=== PATIENT | male | born 1955 | race Caucasian/White ===

== ENCOUNTER 2020-09-29 10:23 | Emergency (ER) | payer MEDICARE, MEDICAID, SELFPAY ==
[2020-09-29 11:26] VITALS: BP 149/97; PULSE 88; RESP 18; TEMP 37.1; O2SAT 97; BMI 30.5
--- NOTE | 2020-09-29 11:37 | ED.GENADULT ---
HPI - General Adult General Chief complaint: General Medical Stated complaint: hbp Time Seen by Provider: 09/29/20 11:24 Source: patient Mode of arrival: ambulatory Limitations: no limitations History of Present Illness HPI narrative: 64-year-old male who presents emergency department for evaluation of elevated blood pressure and dizziness. Patient states that he was mopping this morning and felt slightly dizzy. He is vague in describing the dizziness. He states that it was brief in and went away. The patient then checked his blood pressure he states his blood pressure was 134/94 which is slightly high for him. The patient states that he had no other symptoms. He denied chest pain, headache, nausea, vomiting, shortness of breath, numbness or weakness. The patient states that here in the emergency department he has no complaints. The patient takes hydrochlorothiazide 25 mg daily and lisinopril 40 mg daily. He states he has been compliant with his medications. Related Data Allergies Allergy/AdvReac Type Severity Reaction Status Date / Time No Known Allergies Allergy Unverified 05/07/20 15:16 [No Known Allergies*] Review of Systems Review of Systems: Yes all other systems are reviewed and are negative Neurologic: Reports Abnormal speech present [facility] Past Medical History [facility] Narrative: Past medical history positive for hypertension and prediabetes, the patient smokes 1-2 cigarettes per day, he drinks 8 beers per day, he denies drug use. Physical Exam Const: General: cooperative and healthy appearing Orientation/consciousness: oriented to person and oriented to place Limitations: no limitations HENMT: Head: Yes normal to inspection, Yes normocephalic and Yes atraumatic Ears: external ears normal General nose exam: Normal external nose present Face and sinus: Yes normal facial exam Mouth: Normal oral and palatal mucosa present Throat: Yes posterior oropharynx normal Eyes: Periorbital: periorbital findings normal Eyelids: Yes eyelids normal Conjunctivae: conjunctivae normal Sclerae: sclerae normal Corneas: corneas normal Pupils: Equal, round and reactive pupils present Direct Ophthalmoscopy: normal light reflex Neck: Neck: Yes full ROM, Yes no lymphadenopathy, Yes no meningeal signs, Yes trachea midline and Yes supple Chest: Chest palpation & inspection: normal inspection of the chest and normal palpation of entire chest wall Resp: Effort & Inspection: normal respiratory effort and able to speak in complete sentences Auscultation: clear to auscultation bilaterally Cardio: Rate: regular rate Rhythm: regular rhythm Heart sounds: S1 normal heart sound present, S2 normal heart sound present and no murmurs GI: Inspection: Yes normal to inspection Palpation (GI): Soft to palpation, nontender, no guarding, not rigid and No hepatosplenomegaly present : General: Yes no CVA tenderness Back/Spine/Pelvis: Back: no CVA tenderness Cervical Spine: normal cervical lordosis Thoracic/Lumbar Spine: thoracic and lumbar spine normal to inspection Skin: Lesions: no lesions Rashes: no rashes Wounds: no wounds Neuro: General: oriented to person, oriented to place and no meningeal signs Cranial nerves: Yes CN's II-XII intact bilaterally and Yes Equal, round and reactive pupils present Cognition (Neuro): normal cognition Speech: Abnormal speech present Motor exam (neuro): 5/5 motor strength present throughout Extrem: General: Yes normal to inspection and Yes full ROM Psych: Appearance: well kempt Mental Status: mental status grossly normal Speech and movement: Normal speech and movement present Affect: normal affect Attitude: cooperative Thought process: Normal thought process present Thought content: Normal thought content present Course Course Course Narrative: 64-year-old male with a history of hypertension who presents emergency department for evaluation of dizziness and elevated blood pressure at home. Patient's dizziness was vague and resolved prior to coming to the emergency department. The patient stated that his blood pressure was 134/94 home which is only mildly elevated. Here in the emergency department the patient's blood pressure is 149/97, otherwise exam is completely normal. At this time I do not think patient has hypertensive crisis or urgency or any acute illness such as AK or stroke. I did discuss this with him. Patient was advised to continue taking his medications. He was advised to take his blood pressures on Monday, Monday and Monday for the next 2 weeks and discuss these readings with his doctor. He was given verbal and printed instructions and discharged home. Discharge Plan Discharge Clinical Impression: Dizziness, Hypertension Patient Disposition: Home, Self-Care Additional Instructions: The reason to check your blood pressure at home is to give your doctor an idea of what your blood pressure does when you are not in the doctor's office. Take your blood pressure in the morning, Mondays, Wednesdays and Fridays for the next 2 weeks and then write down these readings to discuss them with your doctor at your next visit. If you doctor decides that your blood pressure readings are high than your doctor will either increase your medications are start you on the medications.. If you get started on new medications, it often takes 1-2 months or longer to get your blood pressure under control. Lowering your blood pressure too rapidly or getting your blood pressure too low quickly can make you feel bad. Please return to the emergency department if you develop concerning symptoms such as severe headache, chest pain, shortness of breath, difficulty walking secondary to shortness of breath, numbness, weakness, difficulty talking. Take Tylenol (acetaminophen) 500 mg pills, 2 pills every 4 to 6 hours as needed for pain. Follow-up with your doctor to discuss your blood pressure readings. Please return to the emergency department if your symptoms get worse or if you develop any new symptoms that are concerning to you.
== END 2020-09-29 12:05 | disposition home or self-care (01) ==
LOC: HO.ED 11:53
PROVIDERS: Emergency Provider Emergency Medicine Emergency Medical Services; PCP Internal Medicine
DX: R42 Dizziness and giddiness (principal); I10 Essential (primary) hypertension; Z79.899 Other long term (current) drug therapy
CPT/HCPCS: 99283

== ENCOUNTER 2022-02-07 16:12 | Outpatient (REF) | payer MEDICARE, MEDICAID, SELFPAY ==
--- NOTE | ~2022-02-07 | XR_ITS ---
EXAMINATION: XR WRIST, RIGHT XR HAND, RIGHT CLINICAL INFORMATION: Pain. COMPARISON: None TECHNIQUE: PA, lateral, and oblique views of the right wrist and PA, lateral, and oblique views of the right hand FINDINGS: Bony alignment and mineralization are normal. There is a very mild ulnar positive variance. There is mild osteoarthritic change of the interphalangeal joint of the thumb and of the third through fifth distal interphalangeal joints.There is mild to moderate osteoarthritic change of the first metacarpophalangeal joint. No acute fracture or dislocation is seen. Question old, healed fracture of the distal fifth metacarpal shaft. There is moderate osteoarthritic change of the first carpometacarpal joint. The proximal and distal carpal rows are intact. There is no abnormal bone erosion. No soft tissue gas or foreign body is seen. XR/XR hand wrist RT IMPRESSION: There are multi-focal degenerative changes of the right hand and wrist, as detailed. No fracture or dislocation is seen. There is no abnormal bone erosion.
== END 2022-02-07 16:13 | disposition home or self-care (01) ==
LOC: HO.XRAY 16:12
PROVIDERS: PCP Internal Medicine; Visit Provider Internal Medicine
DX: M25.531 Pain in right wrist (principal)
CPT/HCPCS: 73110; 73130

== ENCOUNTER → 2022-05-09 09:46 | Outpatient (BNVA) | payer MEDICARE, MEDICAID, SELFPAY | PROVIDERS: PCP Internal Medicine; Referring Provider Internal Medicine; Visit Provider Physician Assistant | DX: Z01.818 Encounter for other preprocedural examination (principal); Z86.010 Personal history of colon polyps | CPT/HCPCS: 99202 ==

== ENCOUNTER 2022-10-18 06:36 | Day surgery (SDC) | payer MEDICARE, MEDICAID, SELFPAY ==
[2022-10-18 07:08] VITALS: BMI 29.7
--- NOTE | 2022-10-18 07:11 | P.CONAN_ITS ---
[facility] Active Problems Active Problems: All Active Problems (Updated 05/09/22 @ 13:12 by Vera Gordon PA-C) History of colon polyps (Acute) Encounter for screening colonoscopy (Acute) Past Medical History Functional capacity: independent ambulation Family History Family history of problems with anesthesia: No Surgical History History of Problems with Anesthesia: No Social History Social History Household Members Other:: Alcohol intake: current Alcohol intake frequency: other Patient Tobacco Use Status: Current someday Tobacco user Use of substances other than those prescribed or required for medical reasons: No Are you DNR?: No Advance Directives: No Advance Directives Information Provided: Yes Recently lost weight without trying: No Nutrition Risks: No Nutritional Risk Current occupational status: retired [employer] Allergies Allergy/AdvReac Type Severity Reaction Status Date / Time No Known Allergies Allergy Verified 05/09/22 09:56 [No Known Allergies*] Home Medications Medication Instructions Recorded Confirmed Last Taken Type hydrochlorothiazide 25 mg tablet 25 mg PO QAM 05/09/22 10/18/22 10/18/22 History lisinopril 40 mg tablet 40 mg PO DAILY 05/09/22 10/18/22 10/18/22 History metformin 500 mg tablet,extended 500 mg PO QPM 05/09/22 10/18/22 Unknown History release 24 hr Exam Exam Date and Time: October 18, 2022 0711 Height,Weight and Vital Signs: Height 5 ft 4 in Weight 78.471 kg Airway Mallampati Class: III TM Dist: >3cm Neck ROM: Full Heart: RRR Lungs: CTA Assessment and Plan Final Anesthetic Review Family History of Problems with Anesthesia: No History of Problems with Anesthesia: No NPO: Yes ASA Class: II and III Final Preanesthetic Review: Meds/Allgs Chart Reviewed, Consent Obtained/Reviewed and Anes Risks/Benef Reviewed Patient Risk: Low Assessment/Block/Sedation in SS: Assess/Block/Sedation-SS Anesthetic Plan Anesthetic Plan: MAC: Disposition: Standard PACU
[2022-10-18 07:14] VITALS: BP 145/95; PULSE 88; RESP 16; TEMP 36.5; O2SAT 96
[2022-10-18 07:28] LABS: Glucose, Whole Blood 120 mg/dL (60-115)
[2022-10-18] MEDS: Lactated Ringers 1,000 ML 100 ML IVCONT (07:30)
--- NOTE | 2022-10-18 08:47 | MHC.SHP ---
Pre-Procedural Eval Section A Date of Service: 10/18/22 Section B Chief Complaint: Encounter for screening for malignant neoplasm of Relevant Family History (Specify if Yes): No Relevant Social History: Alcohol Use Present Medications: see Short Stay Collaborative assessment Medical History: Significant History (HTN, pre diabetes) History of Previous Operations: No relevant previous surgery Allergies: Allergies Allergy/AdvReac Type Severity Reaction Status Date / Time No Known Allergies Allergy Verified 05/09/22 09:56 [No Known Allergies*] Review of Systems Sugical H&P ROS: Negative: Constitution, Cardiovascular, Respiratory, Neurological, Psychiatric, Hem-Onc, Allergic/Immunologic, Gastrointestinal, Genitourinary, Musculoskeletal, Integumentary, Endocrine and Eyes/Ears/Nose/Throat Exam Surgical H&P Exam: Normal: HEENT, Normal: Heart, Normal: Lungs, Normal: Extremities, Normal: Abdomen, Normal: Skin and Normal: Neurological Plan Diagnosis/Plan: Unchanged I have reviewed the history and physical and performed a pertinent physical examination on my patient. No changes have occurred unless specified. Time Spent With Patient Time: Total time managing care of this patient today ____ minutes.
--- NOTE | 2022-10-18 08:49 | W.PM.OPN ---
Operative Note Operative Note Date of Service: 10/18/22 Narrative: Operative Information Procedure Description: Colonoscopy Indication: screening Anesthesia: MAC COLONOSCOPY Instrument: Olympus variable stiffness pediatric scope 190L Colonoscopy Monitoring: Vital signs and clinical assessment, continuous EKG monitoring, Pulse oximetry, Carbon Dioxide monitoring and blood pressure monitoring were done throughout the procedure. Colon withdrawal time was 10 minutes. Procedure: The patient was placed in the left lateral decubitis position and pre-procedure medications were administered. After a digital rectal examination of the ano-rectum, the video colonoscope was inserted into the rectum and advanced through the colon to the cecum/TI. The colonoscope was slowly withdrawn in a retrograde panoramic fashion and the colon mucosa was carefully examined including a retroflexed view of the rectum. Findings and interventions are described below. Procedure Difficulty: moderate, pressure applied to get into cecum Findings: Terminal Ileum-normal Cecum: 6-7 mm sessile polyp removed with cold forceps Ascending Colon: normal Transverse Colon -normal Descending Colon:normal Sigmoid Colon: mild diverticulosis Rectum: Retroflexion with medium sized internal hemorrhoids, grade I, 10 mm sessile polyp removed with cold snare Anorectum - normal Colon preparation: [place] Bowel Preparation Scale Right colon; 2 Transverse colon: 3 Left colon; 3 (0 = Unprepared colon segment with mucosa not seen due to solid stool that cannot be cleared. 1 = Portion of mucosa of the colon segment seen, but other areas of the colon segment not well seen due to staining, residual stool and/or opaque liquid. 2 = Minor amount of residual staining, small fragments of stool and/or opaque liquid, but mucosa of colon segment seen well. 3 = Entire mucosa of colon segment seen well with no residual staining, small fragments of stool or opaque liquid) Impression and Post Procedure Diagnosis: polyps internal hemorrhoids diverticular disease Plan: High fiber diet leaflet Avoid straining at stool, epsom salts and sitz bath, anusol supps or cream Repeat Colonoscopy in 5-7 years due to polyps or earlier if clinically indicated Above findings were reviewed with the patient and relevant handouts were provided if indicated.
[2022-10-18 09:26] VITALS: BP 103/64; PULSE 84; RESP 16; TEMP 36.2; O2SAT 95
[2022-10-18 09:41] VITALS: BP 112/76; PULSE 79; RESP 16; TEMP 36.4; O2SAT 95
--- NOTE | 2022-10-18 09:55 | HO.POSTANES ---
Post Anesthesia Evaluation Post Anesthesia Evaluation Vital Signs: Vital Signs Temp Pulse Resp BP Pulse Ox O2 Del Method 10/18/22 09:41 97.5 F 79 16 112/76 95 Room Air 10/18/22 09:26 97.1 F 84 16 103/64 95 Room Air 10/18/22 07:14 97.7 F 88 16 145/95 H 96 Room Air Anesthesia: Monitored Mental Status: Awake Pain Control: Satisfactory Nausea/Vomiting: None Hydration: Adequate Anesthesia-Related Issues: No Anes. Related Issues
== END 2022-10-18 10:43 | disposition home or self-care (01) ==
PROVIDERS: PCP Internal Medicine; Visit Provider Internal Medicine Gastroenterology
PROC: 0DJD8ZZ Inspection of Lower Intestinal Tract, Via Natural or Artificial Opening Endoscopic (ICD-10-PCS; CPT 45378; principal; 2022-10-18 08:10)
DX: Z12.11 Encounter for screening for malignant neoplasm of colon (principal); Z86.010 Personal history of colon polyps; K63.5 Polyp of colon; K62.1 Rectal polyp; K57.30 Diverticulosis of large intestine without perforation or abscess without bleeding; K64.0 First degree hemorrhoids; I10 Essential (primary) hypertension; R73.03 Prediabetes; Z79.84 Long term (current) use of oral hypoglycemic drugs; Z79.899 Other long term (current) drug therapy; F17.210 Nicotine dependence, cigarettes, uncomplicated
CPT/HCPCS: 45385; 45380; 82947; 88305

== ENCOUNTER → 2022-11-07 13:35 | Outpatient (BNVA) | payer MEDICARE, MEDICAID, SELFPAY | PROVIDERS: PCP Internal Medicine; Visit Provider Physician Assistant | DX: K64.9 Unspecified hemorrhoids (principal); K57.30 Diverticulosis of large intestine without perforation or abscess without bleeding; K63.5 Polyp of colon | CPT/HCPCS: 99212 ==

== ENCOUNTER 2023-06-16 10:24 | Outpatient (REF) | payer MEDICARE, MEDICAID, SELFPAY ==
[2023-06-16 12:44] LABS: Cholesterol 204 mg/dL (<200); HDL Cholesterol 43 mg/dL (>40); LDL Cholesterol Calculated 141 mg/dL (<100); Triglycerides 102 mg/dL (<150)
[2023-06-16 12:47] LABS: Alanine Aminotransferase 33 U/L (0-40); Albumin Level 4.4 g/dL (3.5-5.0); Alkaline Phosphatase 70 U/L (39-117); Anion Gap 16 (12-20); Aspartate Amino Transferase 28 U/L (5-37); Bilirubin Direct 0.4 mg/dL (0.0-0.5); Bilirubin Total 1.5 mg/dL (0.0-1.0); Blood Urea Nitrogen 15 mg/dL (9-16); Calcium 9.7 mg/dL (8.4-10.2); Carbon Dioxide 25 mmol/L (22-29); Chloride 102 mmol/L (96-108); Estimated Glomerular Filt Rate > 60; Glucose Random 131 mg/dL (60-115); Potassium 3.9 mmol/L (3.3-5.1); Sodium 139 mmol/L (135-145); Total Protein 7.9 g/dL (6.5-8.0)
[2023-06-16 12:56] LABS: Prostate Specific Antigen 0.81 ng/mL (<0.05-4.0)
[2023-06-16 15:52] LABS: Reflex LDLD? No
[2023-06-17 03:45] LABS: ~HepC Num1 0.09 S/CO (0.00-0.79); ~Hepatitis C Antibody Nonreactive (Nonreactive)
== END 2023-06-16 10:25 | disposition home or self-care (01) ==
LOC: HO.HHCL 10:24
PROVIDERS: Visit Provider Internal Medicine
DX: Z00.00 Encounter for general adult medical examination without abnormal findings (principal); E78.2 Mixed hyperlipidemia; I10 Essential (primary) hypertension; Z12.5 Encounter for screening for malignant neoplasm of prostate
CPT/HCPCS: 36415; 80048; 80061; 80076; 84153; 86803

== ENCOUNTER 2023-10-27 09:47 | Outpatient (REF) | payer MEDICARE, MEDICAID, SELFPAY ==
[2023-10-27 11:52] LABS: Estimated Average Glucose 154 mg/dL
[2023-10-27 12:57] LABS: Anion Gap 11 (12-20); Blood Urea Nitrogen 11 mg/dL (9-16); Calcium 9.8 mg/dL (8.4-10.2); Carbon Dioxide 30 mmol/L (22-29); Chloride 106 mmol/L (96-108); Estimated Glomerular Filt Rate > 60; Glucose Random 120 mg/dL (60-115); Potassium 3.7 mmol/L (3.3-5.1); Sodium 143 mmol/L (135-145)
[2023-10-27 13:15] LABS: TSH reflex Free T4 0.94 uIU/mL (0.32-4.0)
== END 2023-10-27 09:48 | disposition home or self-care (01) ==
LOC: HO.HHCL 09:47
PROVIDERS: Visit Provider Internal Medicine
DX: I10 Essential (primary) hypertension (principal); F41.9 Anxiety disorder, unspecified; R73.03 Prediabetes
CPT/HCPCS: 36415; 80048; 83036; 84443

== ENCOUNTER 2024-04-29 09:42 | Outpatient (REF) | payer MEDICARE, MEDICAID, SELFPAY ==
[2024-04-29 12:14] LABS: Alanine Aminotransferase 34 U/L (0-40); Albumin Level 4.4 g/dL (3.5-5.0); Alkaline Phosphatase 67 U/L (39-117); Anion Gap 14 (12-20); Aspartate Amino Transferase 28 U/L (5-37); Bilirubin Total 0.7 mg/dL (0.0-1.0); Blood Urea Nitrogen 12 mg/dL (9-16); Carbon Dioxide 24 mmol/L (22-29); Chloride 107 mmol/L (96-108); Cholesterol 204 mg/dL (<200); Estimated Glomerular Filt Rate > 60; Glucose Random 124 mg/dL (60-115); HDL Cholesterol 50 mg/dL (>40); LDL Cholesterol Calculated 139 mg/dL (<100); Potassium 3.7 mmol/L (3.3-5.1); Sodium 141 mmol/L (135-145); Total Protein 7.9 g/dL (6.5-8.0); Triglycerides 75 mg/dL (<150)
[2024-04-29 12:18] LABS: Prostate Specific Antigen Scr 0.88 ng/mL (<0.05-4.0)
== END 2024-04-29 09:43 | disposition home or self-care (01) ==
LOC: HO.HHCL 09:42
PROVIDERS: Visit Provider Internal Medicine
DX: Z00.00 Encounter for general adult medical examination without abnormal findings (principal); E78.2 Mixed hyperlipidemia; I10 Essential (primary) hypertension; Z12.5 Encounter for screening for malignant neoplasm of prostate
CPT/HCPCS: 36415; 80053; 80061; 84153

== ENCOUNTER 2025-04-15 09:11 | Outpatient (REF) | payer MEDICARE, MEDICAID, SELFPAY ==
--- OUTSIDE RECORDS SUMMARY | 2025-04-15 09:33 | XMS_ITS | Encounter Summary ---
Author Organization [email or web address] Address [address] [place] [address] Care Team Providers Care Clerk Specialist Name Role Phone Francisco Javier Schwartz MD Primary Care Provide r Reason for Visit * Reason Comments Med Refill Encounter Details Date Type Department Care Team ([facility] st Contact Info) Description 04/14/2025 Refill [facility] [address], [place] [id number] Francisco Javier Schwatrz MD [address] [place], [place] [id number] Essential hypertension Social History Tobacco Use Types Packs/Day Years Used Date Smoking Tobacco: Some Days Cigarettes Passive Smoke Exposure: Current Smokeless Tobacco: Never Depression Answer Date Recorded Patient Health Questionnaire-9 Score 1 05/28/2024 Patient Health Questionnaire-9 Score 1 05/28/2024 Last PHQ-9: Questionnaire Data Not on file 1 Housing Stability Answer Date Recorded What is your housing situation today? I have neftali jones 06/16/[address] you li ve. Do you have problems with any of the following? None of the above 06/16/2023 Food Insecurity Answer Date Recorded Within the past 12 months, y ou worried that your food would run out before you got money to buy more: Never True 01/02/2025 Within the past 12 months,th e food you bought just didn't last and you didn't have enough money to get more: Never True Transportation Answer Date Recorded In the past 12 months, has l ack of transportation kept you from medical appts, meetings, work or from getting things needed for daily living? No 01/02/2025 Utilities Answer Date Recorded In the past 12 months, has t he electric, gas, oil or water company threatened to shut off services in your home? No 01/02/2025 Depression Answer Date Recorded Patient Health Questionnaire-2 Score 0 05/28/2024 Internet Access Answer Date Recorded Internet Access Q1 Yes 01/02/2025 Internet Access Q2 Not on file 01/02/2025 Sex and Gender Information Value Date Recorded Sex Assigned at Male 06/20/2022 10:17 AM EDT Legal Sex Male 10:17 AM EDT Gender Identity Male 06/20/2022 10:17 AM EDT Sexual Orientation Straight 06/20/2022 10 :17 AM EDT documented as of this encounter Plan of Treatment Upcoming Encounters Date Type Department Care Team (Late st Contact Info) Description 04/17/2025 11:15 AM EDT Office Visit [facility] [address] [place] [address] Francisco Javier Schwartz MD [address] [place] [phone] documented as of this encounter Visit Diagnoses Diagnosis Essential hypertension Unspecified essential hypertension documented in this encounter Additional Health Concerns Assessment Noted Time PHQ-9 Depression Total Score: 1 05/28/20 24 11:28 AM EDT documented as of this encounter Care Teams Clerk Specialist Relationship Specialty Start Date End Date Francisco Javier Schwartz MD [address] [place] [address] PCP - General Internal Medicine 06/25/14 documented as of this encounter
--- OUTSIDE RECORDS SUMMARY | 2025-04-15 09:33 | XMS_ITS | Clinical Summary ---
Author Organization [employer] Address [address] [facility] [address] [place] [address] Care Team Providers Care Quality Assurance Director Name Role Phone Francisco Javier Schwartz MD Primary Care Provide r Allergies No known active allergies Medications hydrOXYzine pamoate (Vistaril) 25 MG capsuleIndications: Anxiety TAKE 1 TABLET BY MOUTH EVERY 8 HOURS IF NEEDED FOR ANXIETY. 90 capsule 3 4 Active Blood Glucose Monitoring Suppl (FreeStyle Lite) w/Device kitIndications:Type 2 diabetes mellitus without complication, without long-term current use of insulin ([facility]) 1 Device Once per day. 1 kit 4 Active FREESTYLE LITE test stripIndications:Ty pe 2 diabetes mellitus without complication, without long-term current use of insulin (CMS/HCC) Test daily 100 each 12 4 04/18/20 25 Active FreeStyle lancetsIndications: Type 2 diabetes mellitus without complication, without long-term current use of insulin (CMS/[facility]) 1 each by Other route Once per day. 100 each 4 04/18/20 25 Active hydroCHLOROthiazide (HYDRODiuril) 25 MG tabletIndications:E levated blood pressure reading TAKE 1 TABLET BY MOUTH EVERY DAY 90 tablet 1 5 Active lisinopril 40 MG tabletIndications:E ssential hypertension Take 1 tablet (40 mg) by mouth Once per day. 90 tablet 1 5 Active atorvastatin (Lipitor) 20 MG tabletIndications:M ixed hyperlipidemia Take 1 tablet (20 mg) by mouth Once per day. 30 tablet 5 01/10/20 26 Active metFORMIN XR (Glucophage-XR) 500 MG 24 hr tabletIndications:T ype 2 diabetes mellitus without complication, without long-term current use of insulin ([facility]) TAKE 1 TABLET(500 MG) BY MOUTH WITH THE EVENING MEAL. DO NOT CRUSH, CHEW, OR SPLIT 90 tablet 1 5 Active Active Problems Problem Noted Date Diagnosed Date Anxiety 10/17/2023 Assessment & Plan (10/17/2023 10:06 AM EST): Patient reports feeling anxious all the time, does not want to see a therapist Plan: Start Vistaril 25 mg po q 8 hrs PRN Obtain TSH Mixed hyperlipidemia 05/04/2023 Assessment & Plan (01/09/2025 11:19 AM EDT): Patient with elevated lipids. Most recent lipid profile from: Lab Results Component Value Date TRIG 75 04/29/2024 TRIG 102 06/16/2023 CHOL 204 (H) 04/29/2024 CHOL 204 (H) 06/16/2023 LDLCHOLCAL 139 (H) 04/29/2024 LDLCHOLCAL 141 (H) 06/16/2023 HDL 50 04/29/2024 HDL 43 06/16/2023 Last visit started on Atorvastatin 20 mg po qhs advised to try to adhere to a low cholesterol diet, counseled and educated about diet and exercise, Patient encouraged to come up with a personal goal for weight loss. Repeat Lipid profile Assessment & Plan (05/28/2024 11:45 AM EDT): Patient with elevated lipids. Most recent lipid profile from: Lab Results Component Value Date TRIG 75 04/29/2024 TRIG 102 06/16/2023 CHOL 204 (H) 04/29/2024 CHOL 204 (H) 06/16/2023 LDLCHOLCAL 139 (H) 04/29/2024 LDLCHOLCAL 141 (H) 06/16/2023 HDL 50 04/29/2024 HDL 43 06/16/2023 The 10-year ASCVD risk score (Laura TARANGO, et al., 2019) is: 45.8% Values used to calculate the score: Age: 68 years Sex: Male Is Non- : No Diabetic: Yes Tobacco smoker: Yes Systolic Blood Pressure: 134 mmHg Is BP treated: Yes HDL Cholesterol: 50 mg/dL Total Cholesterol: 204 mg/dL Currently not on a regimen Plan: Start Atorvastatin 20 mg po qhs advised to try to adhere to a low cholesterol diet, counseled and educated about diet and exercise, Patient encouraged to come up with a personal goal for weight loss. Assessment & Plan (04/18/2024 10:17 AM EDT): Patient with elevated lipids. Most recent lipid profile from: 06/16/2023 Component Ref Range & Units 2 yr ago Triglycerides <150 mg/dL 102 109 Comment: Desirable Triglyceride: less than 150 mg/dLBorderline High Triglyceride 150-199 mg/dLHigh Triglyceride: 200-499 mg/dLVery High Triglyceride: greater than or equal to 5OO mg/dL Cholesterol <200 mg/dL 204 High Comment: Desirable Cholesterol: less than 200 mg/dLBorderline High Cholesterol: 200-239 mg/dLHigh Cholesterol: greater than 239 mg/dL LDL Cholesterol Calculated <100 mg/dL 141 High Comment: Desirable LDL: less than 100 mg/dLNear Optimal/Above Optimal LDL: 110- 129 mg/dLBorderline High LDL: 130-159 mg/dLHigh LDL: 160-189 mg/dLVery High LDL: greater than or equal to 190 mg/dL HDL Cholesterol >40 mg/dL 43 51 R Currently not on a regimen For now will continue with diet and exercise, Repeat Lipid profile advised to try to adhere to a low cholesterol diet, counseled and educated about diet and exercise, Patient encouraged to come up with a personal goal for weight loss. Assessment & Plan (10/17/2023 9:17 AM EST): Patient with elevated lipids. Most recent lipid profile from: 06/16/2023 Component Ref Range & Units 4 mo ago 2 yr ago Triglycerides <150 mg/dL 102 109 Comment: Desirable Triglyceride: less than 150 mg/dLBorderline High Triglyceride 150-199 mg/dLHigh Triglyceride: 200-499 mg/dLVery High Triglyceride: greater than or equal to 5OO mg/dL Cholesterol <200 mg/dL 204 High Comment: Desirable Cholesterol: less than 200 mg/dLBorderline High Cholesterol: 200-239 mg/dLHigh Cholesterol: greater than 239 mg/dL LDL Cholesterol Calculated <100 mg/dL 141 High Comment: Desirable LDL: less than 100 mg/dLNear Optimal/Above Optimal LDL: 110- 129 mg/dLBorderline High LDL: 130-159 mg/dLHigh LDL: 160-189 mg/dLVery High LDL: greater than or equal to 190 mg/dL HDL Cholesterol >40 mg/dL 43 51 R Currently not on a regimen For now will continue with diet and exercise advised to try to adhere to a low cholesterol diet, counseled and educated about diet and exercise, Patient encouraged to come up with a personal goal for weight loss. Assessment & Plan (05/04/2023 9:33 AM EDT): Patient with elevated lipids. Most recent lipid profile from: 10/01/2021 shows a total cholesterol of:219 triglycerides of: 109 HDL of: 51 and LDL of: 145 Currently not on a regimen Will repeat lipid profile . For now will try diet and exercise advised to try to adhere to a low cholesterol diet, counseled and educated about diet and exercise, Patient encouraged to come up with a personal goal for weight loss. Preventative health care 05/04/2023 Assessment & Plan (01/09/2025 11:21 AM EDT): Lab Results Component Value Date PSA 0.81 06/16/2023 Colonoscopy: 10/18/[address] Weaver recommended 5-7 years follow up Vaccines: Declines all of them Assessment & Plan (05/04/2023 10:32 AM EDT): RGOER: 05/26/2016 Nl PSA 10/01/2021 Normal Colonoscopy: 10/18/[address] Weaver recommended 5-7 years follow up Vaccines: Declines all of them Type 2 diabetes mellitus wit hout complication, without long-term current use of insulin 10/18/2022 Assessment & Plan (01/09/2025 11:34 AM EDT): Patient here for a follow up regarding his DM Hgb A1c 01/09/2025: 7 from 6.8 On Metformin XR 500 mg po daily with evening meal Microalbumin ordered Eye exam 07/22/2024 [facility] No DR Foot check risk of zero Follow up 4 months Assessment & Plan (05/28/2024 11:38 AM EDT): Patient with newly diagnosed DM Hgb A1c 04/18/2024: 6.8 On Metformin XR 500 mg po daily with evening meal Obtain Microalbumin Referred for Eye exam Foot check risk of zero Follow up 4 months Assessment & Plan (04/18/2024 10:32 AM EDT): Patient with newly diagnosed DM Hgb A1c 04/18/2024: 6.8 Restart Metformin XR 500 mg po daily with evening meal Obtain Microalbumin Referred for Eye exam Foot check risk of zero Follow up 4 weeks Assessment & Plan (10/17/2023 9:16 AM EST): FBS 10/01/2021 was elevated at 117 Discussed with him the need to adhere to a low sugar /carbohydrate diet 05/04/2023 A1c 6.2 Patient used to be on Metformin XR 500 mg po daily but he stopped because of stomach upset Repeat BS was 131 but was not fasting Will repeat f/u in 4 months Assessment & Plan (05/04/2023 10:36 AM EDT): FBS 10/01/2021 was elevated at 117 Discussed with him the need to adhere to a low sugar /carbohydrate diet 05/04/2023 A1c 6.2 Patient used to be on Metformin XR 500 mg po daily but he stopped because of stomach upset Will repeat FBS prior to next visit f/u in 4 months Essential hypertension 02/16/2016 Assessment & Plan (01/09/2025 11:17 AM EDT): Pt here for a follow up BP controlled He is on a regimen of: Lisinopril 40 mg po daily and Hctz 25 mg po daily, He stopped the Amlodipine because he feels it was lowering his BP too much. Most recent electrolytes, Bun and Creatinine done on: Lab Results Component Value Date NA 141 04/29/2024 NA 143 10/27/2023 K 3.7 04/29/2024 K 3.7 10/27/2023 CL 107 04/29/2024 CL 106 10/27/2023 BUN 12 04/29/2024 BUN 11 10/27/2023 CREATININE 0.88 04/29/2024 CREATININE 0.89 10/27/2023 were within normal limits. Repeat BMP continue current regimen Patient advised to adhere to a low sodium diet, encouraged about medication compliance, counseled about weight loss. f/u in 4 months Assessment & Plan (05/28/2024 11:44 AM EDT): Pt here for a follow up BP stable He is on a regimen of: Lisinopril 40 mg po daily and Hctz 25 mg po daily, He stopped the Amlodipine because he feels it was lowering his BP too much. Most recent electrolytes, Bun and Creatinine done on: 06/16/2023 were within normal limits. Repeat BMP continue current regimen Patient advised to adhere to a low sodium diet, encouraged about medication compliance, counseled about weight loss. f/u in 4 months Assessment & Plan (04/18/2024 10:33 AM EDT): Pt here for a follow up BP controlled He is on a regimen of: Lisinopril 40 mg po daily and Hctz 25 mg po daily, He stopped the Amlodipine because he feels it was lowering his BP too much. Most recent electrolytes, Bun and Creatinine done on: 06/16/2023 were within normal limits. Repeat BMP continue current regimen Patient advised to adhere to a low sodium diet, encouraged about medication compliance, counseled about weight loss. f/u in 4 months Assessment & Plan (10/17/2023 10:04 AM EST): Pt here for a follow up BP elevated. Pt tells me he getrs very anxious every time he comes and see me but that when he checks his BP at home is always normal He is on a regimen of: Lisinopril 40 mg po daily and Hctz 25 mg po daily, He stopped the Amlodipine because he feels it was lowering his BP too much. Most recent electrolytes, Bun and Creatinine done on: 06/16/2023 were within normal limits. Patient advised to adhere to a low sodium diet, encouraged about medication compliance, counseled about weight loss. f/u in 4 months Assessment & Plan (05/04/2023 9:31 AM EDT): Pt here for a follow up BP controlled On a regimen of: Lisinopril 40 mg po daily and Hctz 25 mg po daily, He stopped the Amlodipine because he feels it was lowering his BP too much. Most recent electrolytes, Bun and Creatinine done on: 10/01/2021 were within normal limits. Will repeat Patient advised to adhere to a low sodium diet, encouraged about medication compliance, counseled about weight loss. f/u in 4 months Encounters Date Type Department Care Team Description 04/14/2025 Refill [facility] [address] [place], [place] [phone] Francisco Javier Schwartz MD Essential hypertension 02/25/2025 Refill [facility] [address] [place] [address] Francisco Javier Schwartz MD Type 2 diabetes mellitus without complication, without long-term current use of insulin ([facility]) from Last 3 Months Immunizations Immunization Administration Dates Next Due Cisiv SARS-CoV-2 Vaccination 11/04/2020 Social History Tobacco Use Types Packs/Day Years Used Date Smoking Tobacco: Some Days Cigarettes Passive Smoke Exposure: Current Smokeless Tobacco: Never Tobacco Cessation:Ready to Q uit: Not Asked; Counseling Given: Not Answered Depression Answer Date Recorded Patient Health Questionnaire-9 [...] Orientation Straight 06/20/2022 10 :17 AM EDT Last Filed Vital Signs Vital Sign Reading Time Taken Comments Blood Pressure 128/76 01/09/2025 11:30 AM EDT Pulse 83 01/09/2025 11:13 AM EDT Temperature 36.1 C (96.9 F) 01/09/2025 11:13 AM EDT Respiratory Rate 20 01/09/2025 11:13 AM EDT Oxygen Saturation 98% 01/09/2025 11:13 AM EDT Inhaled Oxygen Concentration - - Weight 79.4 kg (175 lb) 01/09/2025 11:13 AM EDT Height 162.6 cm (5' 4 ) 01/09/2025 11:13 AM EDT Body Mass Index 30.04 01/09/2025 11:13 AM EDT Plan of Treatment Upcoming Encounters Date Type Department Care Team (Late st Contact Info) Description 04/17/2025 11:15 AM EDT Office Visit [facility] [address] [place] [address] Francisco Javier Schwartz MD [address] [place] [address] Health Maintenance Due Date Last Done Comments CT Colonography 1953 FIT DNA/Cologuard 1953 FIT 1953 FOBT 1955 Sigmoidoscopy 1953 Diabetes: Foot Exam 11/02/1963 Eye Exam 11/02/1963 DTaP/Tdap/Td Vaccines (1 - Tdap) 1972 Diabetes: Urine Protein Screening 1972 Pneumococcal Vaccine: 50+ Years (1 of 2 - PCV) 1972 Zoster Vaccines (1 of 2) 11/02/2003 COVID-19 Vaccine (3 - season) 2024 08/25/2021, 11/04/2020 Diabetes: Hemoglobin A1C 04/11/2025 025, 04/18/2024, 10/27/2023, Additional history exists Influenza Vaccine (#1) 2025 Lipid Panel 04/29/2025 04/29/2024, 05/22, 10/01/2021 Depression Screening 05/28/2025 05/28/2024, 05/28/20 24 Tobacco Screening 05/28/2025 05/28/2024 SDOH Screening 01/02/2026 01/02/2025 Alcohol/Substance Use Screening 01/09/2026 01/09/2025 Colonoscopy 10/18/2027 10/18/2022 Colorectal Cancer Screening 10/18/2027 RSV Patients and Patients Aged 60 years or older (1 - 1-dose 75+ series) 2028 Hepatitis C Screening Completed 06/16/2023 HIB Vaccines Aged Out No longer eligi ble based on patient's age to complete this topic HPV Vaccines Aged Out No longer eligi ble based on patient's age to complete this topic Hepatitis A Vaccines Aged Out No long er eligible based on patient's age to complete this topic Hepatitis B Vaccines Aged Out No long er eligible based on patient's age to complete this topic IPV Vaccines Aged Out No longer eligi ble based on patient's age to complete this topic Meningococcal B Vaccine Aged Out No l onger eligible based on patient's age to complete this topic Meningococcal Vaccine Aged Out No eugene treva eligible based on patient's age to complete this topic RSV under 20 months Aged Out No longe r eligible based on patient's age to complete this topic Rotavirus Vaccines Aged Out No longer eligible based on patient's age to complete this topic Procedures Procedure Name Priority Date/Time Associated Diagnosis Comments POCT GLYCATED HEMOGLOBIN, TOTAL Routine 01/09/2025 11:27 AM EDT Type 2 diabetes mellitus without complication, without long-term current use of insulin (CMS/HCC) LIPID PANEL, STANDARD Routine 04/29/2024 9:50 AM EDT Mixed hyperlipidemia HEPATITIS C AB W/REFL TO HCV RNA, QN, PCR Routine 06/16/2023 10:31 AM EDT Preventative health care HM COLONOSCOPY Routine 10/18/2022 5:06 PM EST from Last 3 Months or Most Recently Relevant to Health Maintenance Results * (ABNORMAL) POCT HGB A1C (01/09/2025 11:27 AM EDT) Hemoglobin A1C 7.0(A) 4.0 - 6.0 % QC Media Lot # [id number] Lot# Expiration Date Blood 01/09/2025 11:2 7 AM EDT Francisco Javier Murdock MD POINT OF CARE TEST EN TER/EDIT ORDERABLES Final Result * (ABNORMAL) Lipid Panel, Standard (04/29/2024 9:50 AM EDT) Triglycerides 75 <150 mg/dL [facility] Comment:Desirable Triglyceri de: less than 150 mg/dLBorderline High Triglyceride 150-199 mg/dLHigh Triglyceride: 200-499 mg/dLVery High Triglyceride: greater than or equal to 5OO mg/dL Cholesterol 204(H) <200 mg/dL [facility] Comment:Desirable Cholestero l: less than 200 mg/dLBorderline High Cholesterol: 200-239 mg/dLHigh Cholesterol: greater than 239 mg/dL LDL Cholesterol Calculated 139(H) <100 mg/dL [facility] Comment:Desirable LDL: less than 100 mg/dLNear Optimal/Above Optimal LDL: 110- 129 mg/dLBorderline High LDL: 130-159 mg/dLHigh LDL: 160-189 mg/dLVery High LDL: greater than or equal to 190 mg/dL HDL Cholesterol 50 >40 mg/dL [facility] Comment:Desirable HDL: great er than 40 mg/dL Note: This HDL assay may give artificially low results in patients with liver disease. Blood Venous blood specimen / Unknown 04/29/2024 9:50 AM EDT 04/29/2024 11:32 AM EDT Francisco Javier Murdock MD LAB BLOOD ORDERABLES Final Result Performing Organization Address City/[facility]/ZIP Co de Phone Number [facility] [address] [place] [phone] * Hepatitis C Antibody with Reflex to HCV, RNA, Quantitative, Real-Time PCR (06/16/2023 10:31 AM EDT) Hepatitis C Antibody Nonreactive Nonreactive [facility] Comment:Antibodies to HCV no t detected; does not exclude early acuteHCV infection. Blood Venous blood specimen / Unknown 06/16/2023 10:31 AM EDT 06/16/2023 11:24 AM EDT Francisco Javier Murdock MD LAB BLOOD ORDERABLES Final Result Performing Organization Address City/[facility]/ZIP Co de Phone Number [facility] [address] [place] [address] [phone] * Hm Colonoscopy (10/18/2022 5:06 PM EST) Colonoscopy Normal Normal Narrative Carlie Song - 10/18/2022 5:06 PM EST Recommended 5-7 years see external hospital admission note Historical Provider HEALTH MAINTENANCE Edited Result - Final from Last 3 Months or Most Recently Relevant to Health Maintenance Insurance [facility] STANDARD MEDICARE Care Teams Quality Assurance Director Relationship Specialty Start Date End Date Francisco Javier Schwartz MD [address] [place] [phone] PCP - General Internal Medicine 06/25/14
--- OUTSIDE RECORDS SUMMARY | 2025-04-15 09:33 | XMS_ITS | Encounter Summary ---
Author Organization [employer] Address [address] [place] [address] Care Team Providers Care Deputy Harbormaster Name Role Phone Francisco Javier Schwartz MD Primary Care Provide r Encounter Details Date Type Department Care Team ([facility] st Contact Info) Description 12/19/2024 Orders Only [facility] [address] [place], [place] [phone] Provider, MD Jennie Social History Tobacco Use Types Packs/Day Years Used Date Smoking Tobacco: Some Days Cigarettes Passive Smoke Exposure: Current Smokeless Tobacco: Never Depression Answer Date Recorded Patient Health Questionnaire-9 Score 1 05/28/2024 Patient Health Questionnaire-9 Score 1 05/28/2024 Last PHQ-9: Questionnaire Data Not on file 1 Housing Stability Answer Date Recorded What is your housing situation today? I have neftalieder jones 06/16/[address] you li ve. Do you have problems with any of the following? None of the above 06/16/2023 Food Insecurity Answer Date Recorded Within the past 12 months, y ou worried that your food would run out before you got money to buy more: Never True 06/16/2023 Within the past 12 months,th e food you bought just didn't last and you didn't have enough money to get more: Never True Transportation Answer Date Recorded In the past 12 months, has l ack of transportation kept you from medical appts, meetings, work or from getting things needed for daily living? No 06/16/2023 Utilities Answer Date Recorded In the past 12 months, has t he electric, gas, oil or water company threatened to shut off services in your home? No 06/16/2023 Depression Answer Date Recorded Patient Health Questionnaire-2 Score 0 05/28/2024 Sex and Gender Information Value Date Recorded Sex Assigned at Male 06/20/2022 10:17 AM EDT Legal Sex Male 10:17 AM EDT Gender Identity Male 06/20/2022 10:17 AM EDT Sexual Orientation Straight 06/20/2022 10 :17 AM EDT documented as of this encounter Plan of Treatment Upcoming Encounters Date Type Department Care Team (Late st Contact Info) Description 04/17/2025 11:15 AM EDT Office Visit [facility] [address] [place] [address] Francisco Javier Schwartz MD [address] [place] [address] documented as of this encounter Procedures Procedure Name Priority Date/Time Associated Diagnosis Comments HM COLONOSCOPY Routine 10/18/2022 5:06 PM EST documented in this encounter Results * Hm Colonoscopy (10/18/2022 5:06 PM EST) Colonoscopy Normal Normal Narrative Carlie Song - 10/18/2022 5:06 PM EST Recommended 5-7 years see external hospital admission note us Historical Provider HEALTH MAINTENANCE Edited Result - Final documented in this encounter Visit Diagnoses Not on filedocumented in this encounter Additional Health Concerns Assessment Noted Time PHQ-9 Depression Total Score: 1 05/28/20 24 11:28 AM EDT documented as of this encounter Care Teams Deputy Harbormaster Relationship Specialty Start Date End Date Francisco Javier Schwartz MD [address] [place] [address] PCP - General Internal Medicine 06/25/14 documented as of this encounter
--- OUTSIDE RECORDS SUMMARY | 2025-04-15 09:33 | XMS_ITS | Encounter Summary ---
Author Organization [employer] Address [address] [facility] [address] [place] [address] Care Team Providers Care Farmworker Dairy Name Role Phone Francisco Javier Schwartz MD Primary Care Provide r Reason for Visit * Reason Comments Med Refill Encounter Details Date Type Department Care Team ([facility] st Contact Info) Description 11/16/2023 Refill [facility] [address] [place], [place] [phone] Francisco Javier Schwartz MD [address] [place], [place] [phone] Social History Tobacco Use Types Packs/Day Years Used Date Smoking Tobacco: Former Cigarettes Passive Smoke Exposure: Past Smokeless Tobacco: Never Depression Answer Date Recorded Patient Health Questionnaire-9 Score 0 05/04/2023 Housing Stability Answer Date Recorded What is [...] Date Recorded Patient Health Questionnaire-2 Score 0 05/04/2023 Sex and Gender Information Value Date Recorded Sex Assigned at Male 06/20/2022 10:17 AM EDT Legal Sex Male 10:17 AM EDT Gender Identity Male 06/20/2022 10:17 AM EDT Sexual Orientation Straight 06/20/2022 10 :17 AM EDT documented as of this encounter Plan of Treatment Upcoming Encounters Date Type Department Care Team (Late st Contact Info) Description 04/17/2025 11:15 AM EDT Office Visit [facility] [address] [place] [address] Francisco Javier Schwartz MD [address] [place] [address] documented as of this encounter Visit Diagnoses Not on filedocumented in this encounter Additional Health Concerns Assessment Noted Time PHQ-9 Depression Total Score: 0 05/04/20 23 10:15 AM EDT documented as of this encounter Care Teams Farmworker Dairy Relationship Specialty Start Date End Date Francisco Javier Schwartz MD [address] [place] [address] PCP - General Internal Medicine 06/25/14 documented as of this encounter
[2025-04-15 11:45] LABS: Microalbum/Creatinine Ratio Ur 34.7 ug/mg cr (<30)
[2025-04-15 11:53] LABS: Alanine Aminotransferase 34 U/L (0-40); Albumin Level 4.5 g/dL (3.5-5.0); Alkaline Phosphatase 78 U/L (39-117); Anion Gap 14 (12-20); Aspartate Amino Transferase 34 U/L (5-37); Blood Urea Nitrogen 12 mg/dL (9-16); Calcium 9.7 mg/dL (8.4-10.2); Carbon Dioxide 26 mmol/L (22-29); Chloride 103 mmol/L (96-108); Cholesterol 176 mg/dL (<200); Estimated Glomerular Filt Rate > 60; HDL Cholesterol 45 mg/dL (>40); Potassium 4.1 mmol/L (3.3-5.1); Sodium 139 mmol/L (135-145); Total Protein 7.6 g/dL (6.5-8.0); Triglycerides 78 mg/dL (<150)
== END 2025-04-15 09:12 | disposition home or self-care (01) ==
LOC: HO.HHCL 09:11
PROVIDERS: PCP Internal Medicine; Visit Provider Internal Medicine
DX: Z00.00 Encounter for general adult medical examination without abnormal findings (principal); E11.9 Type 2 diabetes mellitus without complications; I10 Essential (primary) hypertension; E78.2 Mixed hyperlipidemia; Z12.5 Encounter for screening for malignant neoplasm of prostate
CPT/HCPCS: 36415; 80053; 80061; 82043; 82570; 84153

== ENCOUNTER 2025-05-20 20:03 | Emergency (ER) | payer MEDICARE, MEDICAID, SELFPAY ==
--- NOTE | ~2025-05-20 | CT_ITS ---
CLINICAL HISTORY: dyspnea, hypoxia CT angiography chest with contrast. 3D Postprocessing. Comparison: CT - CT ANGIO CHEST PE PROTOCOL - 05/21/25 00:42 EDT Findings: The heart is normal size. RV/LV ratio is normal. The thoracic aorta is normal caliber. No large or central pulmonary artery embolus. Segmental pulmonary arteries not well visualized secondary to motion artifact. The visualized thyroid and mediastinum are unremarkable. No consolidation or effusion. Fatty infiltration of the liver is present. Cholelithiasis. No acute fractures. IMPRESSION: 1. No large or central pulmonary artery embolus. Segmental pulmonary arteries not well visualized secondary to motion artifact. 2. Cholelithiasis. 3. Fatty infiltration of the liver. This document has been electronically signed by: Jorje Yepez MD on 05/21/2025 02:35:22
--- NOTE | ~2025-05-20 | XR_ITS ---
CLINICAL HISTORY: dyspnea 1 view chest x-ray Comparison: None provided Findings: Prominent right hilar soft tissues. Right lower lobe perihilar opacity. No pleural effusion or pneumothorax. Normal size heart. No acute fracture. IMPRESSION: 1. Right lower lobe perihilar opacities secondary to an infiltrate versus irregular mass. Suggest correlation with contrast-enhanced CT. 2. Possible right hilar adenopathy or small mass which can be better characterized with contrast-enhanced CT. This document has been electronically signed by: Joanie Bowers DO on 05/20/2025 22:17:55
--- NOTE | 2025-05-20 20:05 | ED.SOB ---
HPI - SOB/Dyspnea General Chief Complaint: Dyspnea Stated Complaint: Diff breathing/High blood pressure Time Seen by Provider: 05/20/25 21:03 Source: patient, RN notes reviewed and old records reviewed Mode of arrival: ambulatory Limitations: no limitations History of Present Illness ED Provider: Dr. Caryn Brizuela HPI Narrative: 69-year-old male with a history of COPD, hypertension presenting with shortness of breath, cough productive of green sputum, chest tightness ongoing for the last 10 days or so. Patient admits last Monday he was seen at an urgent care center and given a course of antibiotics. Reports he has not improved and feels his shortness of breath is only worsening. Cough is productive of green sputum. Denies hemoptysis. No reported fever or known sick contacts. Denies lower extremity edema or pain. Has been using his inhaler without relief. Related Data Home Medications ?Medication ?Instructions ?Recorded ?Confirmed hydrochlorothiazide 25 mg tablet 25 mg PO QAM 05/09/22 11/07/22 lisinopril 40 mg tablet 40 mg PO DAILY 05/09/22 11/07/22 metformin 500 mg tablet,extended 500 mg PO QPM 05/09/22 11/07/22 release 24 hr Previous Rx's ?Medication ?Instructions ?Recorded doxycycline monohydrate 100 mg 100 mg PO BID 7 days #14 caps 05/21/25 capsule prednisone 50 mg tablet 50 mg PO DAILY 5 days #5 tabs 05/21/25 Allergies Allergy/AdvReac Type Severity Reaction Status Date / Time No Known Allergies (No Known Allergy Verified 05/20/25 20:08 Allergies*) Review of Systems Review of Systems: as per HPI, full review of systems performed and negative but for the above mentioned pertinent positives and negatives. [facility] Past Medical History Surgical History Hx of colonoscopy Social History Social History Household Members Other:: Alcohol intake: current Alcohol intake frequency: a few times a week Alcohol type: beer Patient Tobacco Use Status: Current someday Tobacco user Smoked in Last 30 Days: No Use of substances other than those prescribed or required for medical reasons: Yes Substance Use Type: Marijuana Advance Directives: No Advance Directives Information Provided: No Do you have a plan to hurt others: No Plan Current occupational status: retired Physical Exam Exam: Exam: GENERAL: Ill-appearing, chronically ill-appearing, mild respiratory distress. SKIN: Normal skin color for ethnicity, warm, dry, no rashes noted. HEENT: Normocephalic, atraumatic, no stridor, EOMI. NECK: Soft, supple, full ROM, midline structures nontender, no step-offs, no deformities, no lymphadenopathy. CHEST: Heart regular tachycardia, barrel chest, symmetric chest rise and fall. PULMONARY: Diffuse, faint, wheezes throughout, tachypnea, diminished air movement bilaterally, mild respiratory distress. ABDOMINAL: Soft, nontender, quiet bowel sounds in all quadrants. : Deferred. MUSCULOSKELETAL: Normal tone, full range of motion, no deformities, no peripheral edema. NEURO: Alert and oriented to person, CN II through XII intact, no focal neurologic deficits. PSYCHIATRIC: Anxious affect, appropriate demeanor. Vital Signs: Vital Signs: Last Vital Signs Temp 98.4 F 05/21/25 03:14 Pulse 100 05/21/25 03:14 Resp 23 H 05/21/25 03:14 BP 135/82 05/21/25 03:14 Pulse Ox 95 05/21/25 03:14 O2 Del Method Room Air 05/21/25 03:14 BMI result Body Mass Index 28.9 Course Course Course Narrative: This is an RME: Additional HPI, ROS, PE not included below will be deferred to primary provider. RME assessment and note performed by: Elissa Ndiaye PA-C This is a 69-year-old male, with a past medical history of diabetes, HTN, who presents emergency department with concerns of shortness of breath x 2 day. Dx with bronchitis. [place] Plan: Labs, EKG, chest x-ray, viral swabs, further ER evaluation needed. Medications Administered Discontinued Medications Generic Name Dose Route Start Last Admin Trade Name Freq PRN Reason Stop Dose Admin Albuterol Sulfate 2.5 mg/ 0 mg 05/20/25 21:26 05/20/25 21:29 Albuterol/Ipratropium 3 ml INHALE 05/20/25 21:27 5 dose ONCE ONE Administration Albuterol Sulfate 2.5 mg/ 0 mg 05/20/25 22:36 05/20/25 22:59 Albuterol/Ipratropium 3 ml INHALE 05/20/25 22:37 Not Given ONCE ONE Magnesium Sulfate 2 gm in 50 mls @ 150 mls/hr 05/20/25 21:41 05/20/25 22:07 Magnesium Sulfate/H2o IV 05/20/25 22:00 Infused ONCE ONE Infusion Doxycycline Hyclate 100 mg/ 250 mls @ 166.67 mls/hr 05/20/25 21:43 05/20/25 23:43 Sodium Chloride IV 05/20/25 23:12 Infused ONCE ONE Infusion Iohexol 65 ml 05/21/25 01:12 05/21/25 01:16 Iohexol 350 Mg/Ml 100 Ml Infus..Btl IV 05/21/25 01:13 65 ml ONCE ONE Administration Methylprednisolone Sodium Succinate 60 mg 05/20/25 21:41 05/20/25 21:47 Methylprednisolone Sod Succ 125 Mg/2 Ml Vial IVPUSH 05/20/25 21:42 60 mg ONCE ONE Administration Medical Decision Making Medical Decision Making [facility] Narrative: Patient presents today with chief complaint of shortness of breath. Differential diagnosis includes, but is not limited to, upper respiratory infection, pneumonia, COPD exacerbation, asthma exacerbation, CHF, pneumothorax, pleural effusion, pulmonary embolism, ACS. Broad-based work-up will be initiated to evaluate for etiology of patient's symptoms. 9:59 PM 05/20/2025 (Dr. Caryn Brizuela, D.O.) White blood cell count slightly elevated at 13 with neutrophilic predominance. There is no bandemia. The patient has a slightly elevated total bilirubin. No jaundice. No obstructive pattern to his transaminases. BNP is low, cardiac enzyme low. COVID and flu swabs are negative. Differential Diagnosis Differential Diagnoses: The differential diagnosis associated with the presentation includes (as above) Admission/Observation Consideration of admission/observation: Escalation of care including admission/observation considered Lab Data [facility] Lab Attestation statement: I reviewed the patient's lab results. 05/20/25 20:37 05/20/25 20:37 Labs: Lab Results 05/20/25 05/20/25 Range/Units 20:37 20:47 WBC 13.0 H (4.8-10.8) X10*3/uL RBC 5.16 (4.60-5.80) X10*6/uL Hgb 16.6 (14.0-18.0) g/dl Hct 45.7 (42.0-52.0) % MCV 88.6 (80.0-98.0) fL MCH 32.2 (27.0-33.0) pg MCHC 36.3 H (31.0-36.0) g/dl RDW 13.2 (11.0-16.0) % Plt Count 235 (160-400) X10*3/uL MPV 10.3 (9.4-12.4) fL Immature Gran % (Auto) 0.4 (0.0-0.4) % Neut % (Auto) 67.4 (45-73) % Lymph % (Auto) 20.5 (20-40) % Fergus % (Auto) 7.6 (2-11) % Eos % (Auto) 3.6 (0-4) % Baso % (Auto) 0.5 (0-2) % Lymph # (Auto) 2.7 (1.2-4.9) X10*3/uL Fergus # (Auto) 1.0 (0.1-1.2) X10*3/uL Eos # (Auto) 0.5 H (0.0-0.4) X10*3/uL Baso # (Auto) 0.1 (0.0-0.2) X10*3/uL Abs Immat Gran (auto) 0.05 H (0.00-0.03) X10*3/uL Absolute Neuts (auto) 8.7 H (2.0-8.3) x10*3/uL Absolute Nucleated RBC 0.000 (0.0-0.012) X10*3/uL Nucleated RBC % (auto) 0.0 (0.0-0.2) /100WBC Hold Purple Top SEE NOTE Hold Blue Top SEE NOTE VBG pH 7.39 (7.32-7.43) VBG pCO2 49 mmHg VBG pO2 50 mmHg VBG HCO3 30 H (22-26) mmol/L VBG O2 Saturation 73.0 % VBG Base Excess 4.2 mmol/L Sodium 142 (135-145) mmol/L Potassium 3.7 (3.3-5.1) mmol/L Chloride 103 (96-108) mmol/L Carbon Dioxide 29 (22-29) mmol/L Anion Gap 14 (12-20) BUN 12 (9-16) mg/dL Creatinine 0.79 (0.5-1.4) mg/dL Estim Creat Clear Calc 80.1 Estimated GFR > 60 Random Glucose 120 H (60-115) mg/dL Lactic Acid 1.4 (0.5-2.0) mmol/L Calcium 9.7 (8.4-10.2) mg/dL Total Bilirubin 1.1 H (0.0-1.0) mg/dL Direct Bilirubin 0.3 (0.0-0.5) mg/dL AST 33 (5-37) U/L ALT 41 H (0-40) U/L Alkaline Phosphatase 75 (39-117) U/L Troponin I High Sens 2.8 (<3.5-35.0) ng/L NT-Pro-B Natriuret Pep 36.5 (<300) pg/mL Total Protein 7.9 (6.5-8.0) g/dL Albumin 4.8 (3.5-5.0) g/dL COVID-19 (CHASE) Negative (Negative) COVID-19 Clin Com See Note Influenza Type A (RENE) Negative (Negative) Influenza Type B (RENE) Negative (Negative) Influenza A & B Note Independent Interpretation I performed an independent interpretation of an: EKG and Plain X-Ray Interpretation: My independent interpretation of the chest x-ray reveals no definitive consolidations, pulmonary edema, pleural effusion, pneumothorax, obvious bony abnormalities. My independent interpretation of the ECG reveals normal sinus tachycardia with rate of 111, right axis deviation, normal intervals, no ST elevations or depressions to suggest ischemic changes, relatively unchanged from previous on 07/11/2015. Radiology Impression Discussion of test interpretation with radiology: I have reviewed the radiologist's reading. External Record Review External record reviewed: Inpatient record Prescription Management I considered prescription management with: Antibiotic and Other (Steroid) Chronic Conditions Patient?s care impacted by: Hypertension and Other (COPD) Discharge Plan Discharge Clinical Impression: Acute exacerbation of chronic obstructive pulmonary disease, Acute hypoxemic respiratory failure Patient Disposition: Home, Self-Care Instructions: Chronic Bronchitis (ED) Additional Instructions: Take your antibiotics for the next 7 days until the course is completed. Do not stop this medication early if you start to feel better. Use prednisone for the next 5 days for inflammation. Use your inhaler if you start to feel short of breath. Return to the emergency department if your shortness of breath does not improve with your inhaler use or if you develop chest pain or fevers greater than 100?. Call 911 with any medical emergency. Prescriptions: New doxycycline monohydrate 100 mg capsule 100 mg PO BID 7 Days Qty: 14 0RF prednisone 50 mg tablet 50 mg PO DAILY 5 Days Qty: 5 0RF No Action hydrochlorothiazide 25 mg tablet 25 mg PO QAM lisinopril 40 mg tablet 40 mg PO DAILY metformin 500 mg tablet extended release 24 hr 500 mg PO QPM Print Language: Yemeni
[2025-05-20 20:06] VITALS: BP 177/110; PULSE 114; RESP 22; TEMP 36.9; O2SAT 92; BMI 28.9
--- NOTE | 2025-05-20 20:07 | ECG_ITS ---
Test Reason : TACHY Blood Pressure : */* mmHG Vent. Rate : 111 BPM Atrial Rate : 111 BPM P-R Int : 194 ms QRS Dur : 86 ms QT Int : 326 ms P-R-T Axes : 63 149 27 degrees QTcB Int : 443 ms Sinus tachycardia Right axis deviation Septal infarct , age undetermined Abnormal ECG When compared with ECG of 11-Jul-2015 13:35, Septal infarct is now Present Nonspecific T wave abnormality has replaced inverted T waves in Inferior leads Referred By: Elissa Ndiaye Electronically Signed By: CROW BARRAGAN
--- NOTE | 2025-05-20 20:10 | PC.NURSE ---
sugar house supervisor made aware of patients vitals/presentation. MANDA Bowers aware of possible sepsis.
[2025-05-20 20:43] VITALS: BP 162/102; PULSE 109; RESP 28; TEMP 37.2; O2SAT 93
[2025-05-20 20:47] LABS: MANUAL DIFF FLAG NO
[2025-05-20 20:49] LABS: Venous Blood Gas Refer to POC result
[2025-05-20 20:50] LABS: VBG HCO3 30 mmol/L (22-26); VBG O2 % Saturation 73.0 %
[2025-05-20 20:50] LABS: Hematocrit 45.7 % (42.0-52.0); Hemoglobin 16.6 g/dl (14.0-18.0); Imm Gran Abs Auto 0.05 X10*3/uL (0.00-0.03); Imm Gran Pct Auto 0.4 % (0.0-0.4); Lymphocytes Absolute Auto 2.7 X10*3/uL (1.2-4.9); Mean Corpuscular HGB Conc 36.3 g/dl (31.0-36.0); Mean Corpuscular Hemoglobin 32.2 pg (27.0-33.0); Mean Corpuscular Volume 88.6 fL (80.0-98.0); NRBC Abs Auto 0.000 X10*3/uL (0.0-0.012); NRBC Pct Auto 0.0 /100WBC (0.0-0.2); Platelet Count 235 X10*3/uL (160-400); Red Blood Count 5.16 X10*6/uL (4.60-5.80); White Blood Count 13.0 X10*3/uL (4.8-10.8)
--- OUTSIDE RECORDS SUMMARY | 2025-05-20 20:54 | XMS_ITS | Encounter Summary ---
Author Organization [employer] Address [address] [facility] [address] [place] [phone] Care Team Providers Care Wrapper Rewinder Name Role Phone Francisco Javier Schwartz MD Primary Care Provide r Reason for Visit * Reason Comments Med Refill Encounter Details Date Type Department Care Team ([facility] Contact Info) Description 04/14/2025 Refill [facility] MEDICINE [address] [place], [place] [phone] Francisco Javier Schwartz MD [address] [place], [place] [phone] Essential hypertension Social History Tobacco Use Types [...] as of this encounter Plan of Treatment Not on file documented as of this encounter Visit Diagnoses Diagnosis Essential hypertension Unspecified essential hypertension documented in this encounter Additional Health Concerns Assessment Noted Time PHQ-9 Depression Total Score: 1 05/28/20 24 11:28 AM EDT documented as of this encounter Care Teams Wrapper Rewinder Relationship Specialty Start Date End Date Francisco Javier Schwartz MD [address] [place] [phone] PCP - General Internal Medicine 06/25/14 documented as of this encounter
--- OUTSIDE RECORDS SUMMARY | 2025-05-20 20:54 | XMS_ITS | Encounter Summary ---
Author Organization [employer] Address [address] [facility] [address] [place] [address] Care Team Providers Care Parts Sales Manager Name Role Phone Francisco Javier Schwartz MD Primary Care Provide r Reason for Visit * Reason Comments Med Refill Encounter Details Date Type Department Care Team ([facility] Contact Info) Description 11/16/2023 Refill [facility] MEDICINE [address] [place], [place] [phone] Francisco Javier Schwartz MD [address] [place], [place] [phone] Social History Tobacco Use Types Packs/Day Years [...] documented as of this encounter Care Teams Parts Sales Manager Relationship Specialty Start Date End Date Francisco Javier Schwartz MD [address] [place] [phone] PCP - General Internal Medicine 06/25/14 documented as of this encounter
--- OUTSIDE RECORDS SUMMARY | 2025-05-20 20:54 | XMS_ITS | Encounter Summary ---
Author Organization [employer] Address [address] [facility] 7t [place] [address] Care Team Providers Care Global Marketing Specialist Name Role Phone Francisco Javier Schwartz MD Primary Care Provide r Reason for Visit * Reason Onset Date Comments Paperwork/Forms 05/08/2025 Encounter Details Date Type Department Care Team ([facility] st Contact Info) Description 05/08/2025 Telephone [facility] MEDICINE [address] [place], [place] [phone] Hilary Bobby RN [address] [place], [place] [phone] Paperwork/Forms Social History Tobacco Use Types Packs/Day Years [...] AM EDT documented as of this encounter Miscellaneous Notes * Telephone Encounter - Xiomara Crystal RN - 05/15/2025 1:38 PM EDT Med B Form for pt diabetic supplies signed by PCP and faxed back to [facility] at * Telephone Encounter - Hilary Bobby RN - 05/08/2025 3:42 PM EDT Received med B form for pt's diabetes supplies. Filled out and placed on PCP's desk. Pending signature. documented in this encounter Plan of Treatment Not on file documented as of this encounter Visit Diagnoses Not on filedocumented in this encounter Additional Health Concerns Assessment Noted Time PHQ-9 Depression Total Score: 1 05/28/20 24 11:28 AM EDT documented as of this encounter Care Teams Global Marketing Specialist Relationship Specialty Start Date End Date Francisco Javier Schwartz MD [address] [place] [phone] PCP - General Internal Medicine 06/25/14 documented as of this encounter
--- OUTSIDE RECORDS SUMMARY | 2025-05-20 20:54 | XMS_ITS | Encounter Summary ---
Author Organization [employer] Address [address] [facility] [address] [place] [address] Care Team Providers Care Superintendent Meter Tests Name Role Phone Francisco Javier Schwartz MD Primary Care Provide r Encounter Details Date Type Department Care Team (Late st Contact Info) Description 12/19/2024 Orders Only [facility] [address] [place], [place] [phone] Provider, MD Jennie Social History Tobacco Use [...] on file documented as of this encounter Procedures Procedure Name Priority Date/Time Associated Diagnosis Comments VENOUS BLOOD GAS Routine 05/20/2025 8:47 PM EDT HOLD LAVENDER - POSSIBLE HEMATOLOGY Routine 05/20/2025 8:37 PM EDT HOLD LT BLUE - POSSIBLE COAG Routine 05/20/2025 8:37 PM EDT CBC WITH AUTO DIFFERENTIAL Routine 05/20/2025 8:37 PM EDT HM COLONOSCOPY Routine 10/18/2022 5:06 PM EST documented in this encounter Results * (ABNORMAL) VENOUS BLOOD GAS (05/20/2025 8:47 PM EDT) VBG pH 7.39 7.32 - 7.43 [facility] Comment:METER #: [id number] additional_comment: Anoop joyner VBG PCO2 49 mmHg [facility] Comment:METER #: [id number] additional_comment: Anoop joyner VBG PO2 50 mmHg [facility] Comment:METER #: [id number] additional_comment: Anoop joyner VBG Base Excess 4.2 mmol/L [facility] Comment:METER #: [id number] additional_comment: Anoop joyner VBG HCO3 30(H) 22 - 26 mmol/L [facility] Comment:METER #: [id number] additional_comment: Anoop joyner O2 Sat, Carlos 73.0 % [facility] Comment:METER #: [id number] additional_comment: Anoop joyner 05/20/2025 8:47 PM EDT 05/20/2025 8:50 PM EDT us Generic External Data Provider LAB BLOOD ORDERAB LES Final Result Performing Organization Address [facility] Co de Phone Number [facility] [address] [place] [address] [phone] * Hold Lavender - Possible Hematology (05/20/2025 8:37 PM EDT) Hold Lavender - Possible Hematololgy SEE NOTE [facility] Comment:Specimen will be hel d untested for 8 hours. Call Hematologyif testing is desired. 05/20/2025 8:37 PM EDT 05/20/2025 8:50 PM EDT Generic External Data Provider HISTORICAL/NON OR DERABLE LABS Final Result Performing Organization Address [facility] Co de Phone Number [facility] [address] [place] [address] [phone] * HOLD LT BLUE - POSSIBLE COAG (05/20/2025 8:37 PM EDT) Hold Lt Blue - Possible Coag SEE NOTE [facility] Comment:Specimen will be hel d untested for 4 hours. Call Hematologyif testing is desired. 05/20/2025 8:37 PM EDT 05/20/2025 8:49 PM EDT us Generic External Data Provider LAB BLOOD ORDERAB LES Final Result Performing Organization Address [facility] Co de Phone Number [facility] [address] [place] [address] [phone] * (ABNORMAL) CBC auto differential (05/20/2025 8:37 PM EDT) White Blood Count 13.0(H) 4.8 - 10.8 X10*3/uL [facility] Red Blood Count 5.16 4.60 - 5.80 X10*6/uL [facility] Hemoglobin 16.6 14.0 - 18.0 g/dl [facility] Hematocrit 45.7 42.0 - 52.0 % [facility] Mean Corpuscular Volume 88.6 80.0 - 98.0 fL [facility] Mean Corpuscular Hemoglobin 32.2 27.0 - 33.0 pg [facility] Mean Corpuscular HGB Conc 36.3(H) 31.0 - 36.0 g/dl [facility] Red Cell Distribution Width 13.2 11.0 - 16.0 % [facility] Platelet Count 235 160 - 400 X10*3/uL [facility] Mean Platelet Volume 10.3 9.4 - 12.4 fL [facility] Neutrophils Percent Auto 67.4 45 - 73 % [facility] Imm Gran Pct Auto 0.4 0.0 - 0.4 % [facility] Lymphocytes Percent Auto 20.5 20 - 40 % [facility] Monocytes Percent Auto 7.6 2 - 11 % [facility] Eosinophils Percent Auto 3.6 0 - 4 % [facility] Basophils Percent Auto 0.5 0 - 2 % [facility] NRBC Pct Auto 0.0 0.0 - 0.2 /100WBC [facility] Neutrophils Absolute Auto 8.7(H) 2.0 - 8.3 x10*3/uL [facility] Imm Gran Abs Auto 0.05(H) 0.00 - 0.03 X10*3/uL [facility] Lymphocytes Absolute Auto 2.7 1.2 - 4.9 X10*3/uL [facility] Monocytes Absolute Auto 1.0 0.1 - 1.2 X10*3/uL [facility] Eosinophils Absolute Auto 0.5(H) 0.0 - 0.4 X10*3/uL [facility] Basophils Absolute Auto 0.1 0.0 - 0.2 X10*3/uL [facility] NRBC Abs Auto 0.000 0.0 - 0.012 X10*3/uL [facility] 05/20/2025 8:37 PM EDT 05/20/2025 8:45 PM EDT us Generic External Data Provider LAB BLOOD ORDERAB LES Final Result [facility] [address] [place] [address] [phone] * Hm Colonoscopy (10/18/2022 5:06 PM [...] documented as of this encounter Care Teams Superintendent Meter Tests Relationship Specialty Start Date End Date Francisco Javier Schwartz MD [address] [place] [phone] PCP - General Internal Medicine 06/25/14 documented as of this encounter
--- OUTSIDE RECORDS SUMMARY | 2025-05-20 20:54 | XMS_ITS | Clinical Summary ---
Author Organization [employer] Address [address] [facility] [address] [place] [address] Care Team Providers Care Auto Body Technician Name Role Phone Francisco Javier Schwartz MD Primary Care Provide r Allergies No known active allergies Medications hydrOXYzine pamoate (Vistaril) 25 MG capsuleIndications :Anxiety TAKE 1 TABLET BY MOUTH EVERY 8 HOURS IF NEEDED FOR ANXIETY. 90 capsule 3 04/15/20 24 Active Blood Glucose Monitoring Suppl (FreeStyle Lite) w/Device kitIndications:Typ e 2 diabetes mellitus without complication, without long-term current use of insulin (HCC) 1 Device Once per day. 1 kit 04/18/20 24 Active hydroCHLOROthiazid e (HYDRODiuril) 25 MG tabletIndications: Elevated blood pressure reading TAKE 1 TABLET BY MOUTH EVERY DAY 90 tablet 1 01/10/20 25 Active lisinopril 40 MG tabletIndications: Essential hypertension Take 1 tablet (40 mg) by mouth Once per day. 90 tablet 1 01/10/20 25 Active atorvastatin (Lipitor) 20 MG tabletIndications: Mixed hyperlipidemia Take 1 tablet (20 mg) by mouth Once per day. 30 tablet 11 01/10/20 25 026 Active metFORMIN XR (Glucophage-XR) 500 MG 24 hr tabletIndications: Type 2 diabetes mellitus without complication, without long-term current use of insulin (HCC) TAKE 1 TABLET(500 MG) BY MOUTH WITH THE EVENING MEAL. DO NOT CRUSH, CHEW, OR SPLIT 90 tablet 1 02/26/20 25 Active FreeStyle lancetsIndications :Type 2 diabetes mellitus without complication, without long-term current use of insulin (HCC) USE ONCE EVERY DAY 100 each 11 05/01/20 25 Active FreeStyle lancetsIndications :Type 2 diabetes mellitus without complication, without long-term current use of insulin (HCC) 1 each by Other route Once per day. 100 each 11 04/18/20 24 025 Discontinued Active Problems Problem Noted Date Diagnosed Date Class 1 obesity due to exces s calories with serious comorbidity and body mass index (BMI) of 30.0 to 30.9 in adult 05/13/2025 Assessment & Plan (05/13/2025 1:08 PM EDT): Patient has been counseled and educated about diet and exercise. Personal goal of weight loss discussedPatient has comorbidity of: DM Anxiety 10/17/2023 Assessment & Plan (10/17/2023 10:06 AM EST): Patient reports feeling anxious all the time, does not want to see a therapist Plan: Start Vistaril 25 mg po q 8 hrs PRN Obtain TSH Mixed hyperlipidemia 05/04/2023 Assessment & Plan (05/13/2025 1:14 PM EDT): Patient with elevated lipids. Most recent lipid profile from: Lab Results Component Value Date TRIG 78 04/15/2025 TRIG 75 04/29/2024 CHOL 176 04/15/2025 CHOL 204 (H) 04/29/2024 LDLCHOLCAL 116 (H) 04/15/2025 LDLCHOLCAL 139 (H) 04/29/2024 HDL 45 04/15/2025 HDL 50 04/29/2024 Regimen: He is supposed to be Atorvastatin 20 mg po at bedtime, but he admits he rarely takes it Plan: Encouraged to start taking it daily advised to try to adhere to a low cholesterol diet, counseled and educated about diet and exercise, Patient encouraged to come up with a personal goal for weight loss. Assessment & Plan (01/09/2025 11:19 AM EDT): [...] Preventative health care 05/04/2023 Assessment & Plan (05/13/2025 1:01 PM EDT): PSA: Normal 04/15/2025 Colonoscopy: 10/18/[address] Weaver recommended 5-7 years follow up Vaccines: Declines all of them Assessment & Plan (01/09/2025 11:21 AM EDT): Lab Results Component Value Date PSA 0.81 06/16/2023 Colonoscopy: 10/18/[address] Weaver recommended 5-7 years follow up Vaccines: Declines all of them Assessment & Plan (05/04/2023 10:32 AM EDT): ROGER: 05/26/2016 Nl PSA 10/01/2021 Normal Colonoscopy: 10/18/[address] Weaver recommended 5-7 years follow up Vaccines: Declines all of them Type 2 diabetes mellitus wit hout complication, without long-term current use of insulin 10/18/2022 Assessment & Plan (05/13/2025 1:15 PM EDT): Patient here for a follow up regarding his DM Hgb A1c 05/13/2025: 6.8 from 7 Regimen: On Metformin XR 500 mg po daily with evening meal Microalbumin 04/13/2025: 34 Pt on NINA inhibitor Eye exam 07/22/2024 [facility] No DR Foot check risk of zero Follow up 4 months Assessment & Plan (01/09/2025 11:34 AM EDT): [...] months Essential hypertension 02/16/2016 Assessment & Plan (05/13/2025 1:00 PM EDT): Pt here for a follow up BP controlled He is on a regimen of: Lisinopril 40 mg po daily and Hctz 25 mg po daily, (stopped the Amlodipine because he felt it was lowering his BP too much.) Most recent electrolytes, Bun and Creatinine done on: Lab Results Component Value Date NA 139 04/15/2025 NA 141 04/29/2024 K 4.1 04/15/2025 K 3.7 04/29/2024 CL 103 04/15/2025 CL 107 04/29/2024 BUN 12 04/15/2025 BUN 12 04/29/2024 CREATININE 0.96 04/15/2025 CREATININE 0.88 04/29/2024 were within normal limits. Patient advised to adhere to a low sodium diet, encouraged about medication compliance, counseled about weight loss. f/u in 4 months Assessment & Plan (01/09/2025 11:17 AM EDT): [...] Encounters Date Type Department Care Team Description 05/13/2025 1:00 PM EDT Office Visit [facility] [address] [place] [phone] Francisco Javier Schwartz MD Type 2 diabetes mellitus without complication, without long-term current use of insulin ([facility]) (Primary Dx); Essential hypertension; Mixed hyperlipidemia; Class 1 obesity due to excess calories with serious comorbidity and body mass index (BMI) of 30.0 to 30.9 in adult; Dietary counseling; Exercise counseling; Preventative health care 05/13/2025 Travel 05/12/2025 Telephone [facility] [address], [place] [phone] Francisco Javier Schwartz MD CHART PREP 05/08/2025 Telephone [facility] [address], [place] [phone] Hilary Bobby RN Paperwork/Forms 04/29/2025 Refill [facility] [address], [place] [phone] Francisco Javier Schwartz MD Type 2 diabetes mellitus without complication, without long-term current use of insulin ([facility]) 04/14/2025 Refill [facility] [address] [place] [phone] Francisco Javier Schwartz MD Essential hypertension 02/25/2025 Refill [facility] [address] [place] [phone] Francisco Javier Schwartz MD Type 2 diabetes mellitus without complication, without long-term current use of insulin ([facility]) from Last 3 Months Immunizations Immunization Administration Dates Next Due Jack SARS-CoV-2 Vaccination 11/04/2020 Social History Tobacco Use [...] Sign Reading Time Taken Comments Blood Pressure 130/86 05/13/2025 1:11 PM EDT Pulse 89 05/13/2025 1:11 PM EDT Temperature 36.2 C (97.1 F) 05/13/2025 1:11 PM EDT Respiratory Rate 20 05/13/2025 1:11 PM EDT Oxygen Saturation 95% 05/13/2025 1:11 PM EDT Inhaled Oxygen Concentration - - Weight 78 kg (172 lb) 05/13/2025 1:11 PM EDT Height 162.6 cm (5' 4 ) 05/13/2025 1:11 PM EDT Body Mass Index 29.52 05/13/2025 1:11 PM EDT Plan of Treatment Health Maintenance Due Date Last Done Comments CT Colonography 1953 FIT DNA/Cologuard 1953 FIT 1953 FOBT 1955 Sigmoidoscopy 1953 Diabetes: Foot Exam 11/02/1963 Eye Exam 11/02/1963 Depression Screening 05/28/2025 05/28/2024, 05/28/20 24 Diabetes: Hemoglobin A1C 11/10/2025 025, 01/09/2025, 04/18/2024, Additional history exists SDOH Screening 01/02/2026 01/02/2025 Alcohol/Substance Use Screening 01/09/2026 01/09/2025 Influenza Vaccine (#1) 2026 Postp oned from 04/21/2025 (Patient Refused) Diabetes: Urine Protein Screening 04/15/2026 04/15/2025 Lipid Panel 04/15/2026 04/15/2025, 09/0 04/2024, 06/16/2023, Additional history exists COVID-19 Vaccine ( season) 2026 08/25/2021, 11/04/2020 Postponed from 04/21/2025 (Patient Refused) DTaP/Tdap/Td Vaccines (1 - Tdap) 05/13/2026 Postponed from 1972 (Patient Refused) Pneumococcal Vaccine: 50+ Years (1 of 2 - PCV) 05/13/2026 Postponed from 1972 (Patient Refused) Tobacco Screening 05/13/2026 05/13/2025 Zoster Vaccines (1 of 2) 05/13/2026 Pos tponed from 11/02/2003 (Patient Refused) Colonoscopy 10/18/2027 10/18/2022 Colorectal Cancer Screening 10/18/2027 [...] AUTO DIFFERENTIAL Routine 05/20/2025 8:37 PM EDT POCT GLYCATED HEMOGLOBIN, TOTAL Routine 05/13/2025 1:15 PM EDT Type 2 diabetes mellitus without complication, without long-term current use of insulin ([facility]) POCT GLUCOSE Routine 05/13/2025 1:14 PM EDT Type 2 diabetes mellitus without complication, without long-term current use of insulin (CMS/HCC) PSA, SCREEN Routine 04/15/2025 9:26 AM EDT Preventative health care LIPID PANEL, STANDARD Routine 04/15/2025 9:26 AM EDT Mixed hyperlipidemia COMPREHENSIVE METABOLIC PANEL Routine 04/15/2025 9:26 AM EDT Essential hypertension ALBUMIN, RANDOM URINE W/CREATININE Routine 04/15/2025 9:26 AM EDT Type 2 diabetes mellitus without complication, without long-term current use of insulin (CMS/HCC) HEPATITIS C AB W/REFL TO HCV RNA, QN, PCR Routine 06/16/2023 10:31 AM EDT Preventative health care HM COLONOSCOPY Routine 10/18/2022 5:06 PM EST from Last 3 Months or Most Recently Relevant to Health Maintenance Results * (ABNORMAL) VENOUS BLOOD GAS (05/20/2025 8:47 PM EDT) VBG pH 7.39 7.32 - 7.43 [facility] Comment:METER #: [id number] additional_comment: Anoop joyner VBG PCO2 49 mmHg [facility] Comment:METER #: [id number] additional_comment: nAoop joyner VBG PO2 50 mmHg [facility] Comment:METER #: [id number] additional_comment: Anoop SERRANOG Base Excess 4.2 mmol/L [facility] Comment:METER #: [id number] additional_comment: Anoop SERRANOG HCO3 30(H) 22 - 26 mmol/L [facility] Comment:METER #: [id number] additional_comment: Anoop joyner O2 Sat, Carlos 73.0 % [facility] Comment:METER #: [id number] additional_comment: Anoop joyner 05/20/2025 8:47 PM EDT 05/20/2025 8:50 PM EDT Generic External Data Provider LAB BLOOD ORDERAB LES Final Result Performing Organization Address [facility] de Phone Number [facility] [address] [place] [phone] * Hold Lavender - Possible Hematology (05/20/2025 8:37 PM EDT) Hold Lavender - Possible Hematololgy SEE NOTE [facility] Comment:Specimen will be hel d untested for 8 hours. Call Hematologyif testing is desired. 05/20/2025 8:37 PM EDT 05/20/2025 8:50 PM EDT Generic External Data Provider HISTORICAL/NON OR DERABLE LABS Final Result Performing Organization Address [facility] de Phone Number [facility] [address] [place] [phone] * HOLD LT BLUE - POSSIBLE COAG (05/20/2025 8:37 PM EDT) Hold Lt Blue - Possible Coag SEE NOTE [facility] Comment:Specimen will be hel d untested for 4 hours. Call Hematologyif testing is desired. 05/20/2025 8:37 PM EDT 05/20/2025 8:49 PM EDT us Generic External Data Provider LAB BLOOD ORDERAB LES Final Result Performing Organization Address [facility] de Phone Number [facility] [address] [place] [phone] * (ABNORMAL) CBC auto differential (05/20/2025 8:37 PM EDT) White Blood Count 13.0(H) 4.8 - 10.8 X10*3/uL [facility] Red Blood Count 5.16 4.60 - 5.80 X10*6/uL [facility] Hemoglobin 16.6 14.0 - 18.0 g/dl [facility] Hematocrit 45.7 42.0 - 52.0 % [facility] Mean Corpuscular Volume 88.6 80.0 - 98.0 fL [facility] Mean Corpuscular Hemoglobin 32.2 27.0 - 33.0 pg [facility] Mean Corpuscular HGB Conc 36.3(H) 31.0 - 36.0 g/dl [facility] Red Cell Distribution Width 13.2 11.0 - 16.0 % [facility] Platelet Count 235 160 - 400 X10*3/uL [facility] Mean Platelet Volume 10.3 9.4 - 12.4 fL [facility] Neutrophils Percent Auto 67.4 45 - 73 % [facility] Imm Gran Pct Auto 0.4 0.0 - 0.4 % [facility] Lymphocytes Percent Auto 20.5 20 - 40 % [facility] Monocytes Percent Auto 7.6 2 - 11 % [facility] Eosinophils Percent Auto 3.6 0 - 4 % [facility] Basophils Percent Auto 0.5 0 - 2 % [facility] NRBC Pct Auto 0.0 0.0 - 0.2 /100WBC [facility] Neutrophils Absolute Auto 8.7(H) 2.0 - 8.3 x10*3/uL [facility] Imm Gran Abs Auto 0.05(H) 0.00 - 0.03 X10*3/uL [facility] Lymphocytes Absolute Auto 2.7 1.2 - 4.9 X10*3/uL [facility] Monocytes Absolute Auto 1.0 0.1 - 1.2 X10*3/uL [facility] Eosinophils Absolute Auto 0.5(H) 0.0 - 0.4 X10*3/uL [facility] Basophils Absolute Auto 0.1 0.0 - 0.2 X10*3/uL [facility] NRBC Abs Auto 0.000 0.0 - 0.012 X10*3/uL [facility] 05/20/2025 8:37 PM EDT 05/20/2025 8:45 PM EDT Generic External Data Provider LAB BLOOD ORDERAB LES Final Result [facility] [address] [place] [phone] * (ABNORMAL) POCT Hgb A1c (05/13/2025 1:15 PM EDT) Hemoglobin A1C 6.8(A) 4.0 - 5.7 % QC Media Lot # [id number] Lot# Expiration Date Blood 05/13/2025 1:15 PM EDT Result [facility] Francisco Javier Murdock MD POINT OF CARE TEST EN TER/EDIT ORDERABLES Final Result * POCT Glucose (05/13/2025 1:14 PM EDT) Glucose Blood, POC 89 60 - 200 mg/dL QC Media Lot # [id number] Lot# Expiration Date [id number] Blood Capillary blood specimen / Unknown 05/13/2025 1:14 PM EDT Result [facility] Francisco Javier Murdock MD POINT OF CARE TEST EN TER/EDIT ORDERABLES Final Result * PSA, Screen (04/15/2025 9:26 AM EDT) PSA, Total 0.76 <0.05 - 4.0 ng/mL [facility] Comment:PSA methodology: Constantine Brunson i ChemiluminescentMicroparticle Immunoassay (CMIA) Blood Venous blood specimen / Unknown 04/15/2025 9:26 AM EDT 04/15/2025 10:55 AM EDT Result [facility] Francisco Javier Murdock MD LAB BLOOD ORDERABLES Final Result Performing Organization Address [facility]/ZIP Co de Phone Number [facility] [address] [place] [phone] * (ABNORMAL) Albumin, Random Urine W/Creatinine (04/15/2025 9:26 AM EDT) Creatinine, Urine 106.35 mg/dL [facility] Microalbumin Urine 37.0 mg/L [facility] Microalbum Creatinine Ratio Ur 34.7(H) <30 ug/mg cr [facility] Comment:Albumin/Creatinine R atio Reference Ranges: Normal: < 30 ug/mg creatinine Microalbuminuria: 30 - 300 ug/mg creatinineClinical Albuminuria: > 300 ug/mg creatinine Urine (Urine, Random) 04/15/2025 9:26 AM EDT 04/15/2025 11:12 AM EDT Francisco Javier Murdock MD LAB URINE ORDERABLES Final Result Performing Organization Address [facility] Co de Phone Number [facility] [address] [place] [phone] * (ABNORMAL) Lipid Panel, Standard (04/15/2025 9:26 AM EDT) Triglycerides 78 <150 mg/dL [facility] Comment:Desirable Triglyceri de: less than 150 mg/dLBorderline High Triglyceride 150-199 mg/dLHigh Triglyceride: 200-499 mg/dLVery High Triglyceride: greater than or equal to 5OO mg/dL Cholesterol 176 <200 mg/dL [facility] Comment:Desirable Cholestero l: less than 200 mg/dLBorderline High Cholesterol: 200-239 mg/dLHigh Cholesterol: greater than 239 mg/dL LDL Cholesterol Calculated 116(H) <100 mg/dL [facility] Comment:Desirable LDL: less than 100 mg/dLNear Optimal/Above Optimal LDL: 110- 129 mg/dLBorderline High LDL: 130-159 mg/dLHigh LDL: 160-189 mg/dLVery High LDL: greater than or equal to 190 mg/dL HDL Cholesterol 45 >40 mg/dL [facility] Comment:Desirable HDL: great er than 40 mg/dL Note: This HDL assay may give artificially low results in patients with liver disease. Blood Venous blood specimen / Unknown 04/15/2025 9:26 AM EDT 04/15/2025 11:06 AM EDT us Francisco Javier Murdock MD LAB BLOOD ORDERABLES Final Result [facility] [address] [place], [place] [phone] * (ABNORMAL) Comprehensive Metabolic Panel (04/15/2025 9:26 AM EDT) Sodium 139 135 - 145 mmol/L [facility] Potassium 4.1 3.3 - 5.1 mmol/L [facility] Chloride 103 96 - 108 mmol/L [facility] Carbon Dioxide 26 22 - 29 mmol/L [facility] Anion Gap 14 12 - 20 [facility] Urea Nitrogen (BUN) 12 9 - 16 mg/dL [facility] Creatinine, Serum 0.96 0.5 - 1.4 mg/dL [facility] Estimated Glomerular Filt Rate >60 [facility] Comment:Chronic Kidney Disea se: Estimated GFR < 60 mL/min/[id number] Kidney Disease: Estimated GFR < 15 mL/min/1.73m2 Glucose 137(H) 60 - 115 mg/dL [facility] Calcium 9.7 8.4 - 10.2 mg/dL [facility] Bilirubin, Total 1.0 0.0 - 1.0 mg/dL [facility] Aspartate Amino Transferase 34 5 - 37 U/L [facility] Alanine Aminotransferase 34 0 - 40 U/L [facility] Total Protein 7.6 6.5 - 8.0 g/dL [facility] Albumin Level 4.5 3.5 - 5.0 g/dL [facility] Alkaline Phosphatase 78 39 - 117 U/L [facility] Blood Venous blood specimen / Unknown 04/15/2025 9:26 AM EDT 04/15/2025 11:06 AM EDT Francisco Javier Murdock MD LAB BLOOD ORDERABLES Final Result Performing Organization Address City/[facility]/ZIP Co de Phone Number [facility] [address] [place] [address] [phone] * Hepatitis C Antibody with Reflex to HCV, RNA, Quantitative, Real-Time PCR (06/16/2023 10:31 AM EDT) Hepatitis C Antibody Nonreactive Nonreactive [facility] Comment:Antibodies to HCV no t detected; does not exclude early acuteHCV infection. Blood Venous blood specimen / Unknown 06/16/2023 10:31 AM EDT 06/16/2023 11:24 AM EDT Francisco Javier Murdock MD LAB BLOOD ORDERABLES Final Result Performing Organization Address City/[facility]/ZIP Co de Phone Number [facility] [address] [place] [address] [phone] * Hm Colonoscopy (10/18/2022 5:06 PM EST) Colonoscopy Normal Normal Narrative Carlie Song - 10/18/2022 5:06 PM EST Recommended 5-7 years see external hospital admission note Historical Provider HEALTH MAINTENANCE Edited Result - Final from Last 3 Months or Most Recently Relevant to Health Maintenance Insurance [facility] STANDARD MEDICARE Care Teams Auto Body Technician Relationship Specialty Start Date End Date Francisco Javier Schwartz MD [address] [place] [phone] PCP - General Internal Medicine 06/25/14
[2025-05-20 21:02] LABS: Alanine Aminotransferase 41 U/L (0-40); Albumin Level 4.8 g/dL (3.5-5.0); Alkaline Phosphatase 75 U/L (39-117); Anion Gap 14 (12-20); Aspartate Amino Transferase 33 U/L (5-37); Blood Urea Nitrogen 12 mg/dL (9-16); Calcium 9.7 mg/dL (8.4-10.2); Carbon Dioxide 29 mmol/L (22-29); Chloride 103 mmol/L (96-108); Creatinine Clr Calc Pharmacy 80.1; Estimated Glomerular Filt Rate > 60; Potassium 3.7 mmol/L (3.3-5.1); Sodium 142 mmol/L (135-145); Total Protein 7.9 g/dL (6.5-8.0)
[2025-05-20 21:08] LABS: NT Pro B Type Natriuretic Pept 36.5 pg/mL (<300)
[2025-05-20 21:09] LABS: COVID-19 Test Negative (Negative); IDNOW Serial# 55D5AD1C; IDNOW Serial# 58CA691E; Influenza B2 Negative (Negative); Troponin-I High Sensitivity 2.8 ng/L (<3.5-35.0)
[2025-05-20] MEDS: Albuterol Sulfate 2.5 MG, Albuterol/Iprat 2.5/0.5MG 3 ML 3 ML INHALE (21:29)
[2025-05-20 21:31] VITALS: PULSE 113; RESP 30; O2SAT 93
[2025-05-20] MEDS: Magnesium Sulfate/H2O 2 GM/50 ML PIGGYBACK IV (21:47)
[2025-05-20 21:51] VITALS: BP 131/91; PULSE 123; RESP 29; O2SAT 93
[2025-05-20 23:20] VITALS: BP 135/71; PULSE 113; RESP 22; O2SAT 92
[2025-05-21 00:44] VITALS: BP 127/80; PULSE 107; RESP 21; TEMP 36.9; O2SAT 94
[2025-05-21] MEDS: iohexoL 350 MG/ML 100 ML INFUS..BTL 65 ML IV (01:16)
[2025-05-21 03:14] VITALS: BP 135/82; PULSE 100; RESP 23; TEMP 36.9; O2SAT 95
[2025-05-21 06:00] VITALS: BP 152/92; PULSE 100; RESP 22; TEMP 36.9; O2SAT 93
[2025-05-21 06:32] VITALS: BP 138/78; PULSE 99; RESP 19; TEMP 36.9; O2SAT 93
== END 2025-05-21 06:33 | disposition home or self-care (01) ==
PROVIDERS: Physician Assistant Medical; Emergency Provider Emergency Medicine; PCP Internal Medicine
DX: J44.1 Chronic obstructive pulmonary disease with (acute) exacerbation (principal); J96.01 Acute respiratory failure with hypoxia; I10 Essential (primary) hypertension; R05.9 Cough, unspecified; R07.9 Chest pain, unspecified; R00.0 Tachycardia, unspecified; R94.31 Abnormal electrocardiogram [ECG] [EKG]; Z72.0 Tobacco use
CPT/HCPCS: 36415; 71045; 71275; 80048; 80076; 82803; 83605; 83880; 84484; 85025; 87040; 87502; 87635; 93005; 94640; 96365; 96367; 96375; 99285; J1271; J2919; J3475; Q9967

== ENCOUNTER → 2025-05-20 20:07 | Outpatient (BNV) | payer MEDICARE, MEDICAID, SELFPAY | PROVIDERS: Emergency Provider Emergency Medicine; PCP Internal Medicine; Visit Provider Internal Medicine | DX: R00.0 Tachycardia, unspecified (principal) | CPT/HCPCS: 93010 ==

== ENCOUNTER → 2025-05-20 21:26 | Outpatient (BNV) | payer MEDICARE, MEDICAID, SELFPAY | PROVIDERS: Emergency Provider Emergency Medicine; PCP Internal Medicine; Visit Provider Radiology Diagnostic Radiology | DX: R91.8 Other nonspecific abnormal finding of lung field (principal) | CPT/HCPCS: 71045 ==

== ENCOUNTER → 2025-05-21 00:17 | Outpatient (BNV) | payer MEDICARE, MEDICAID, SELFPAY | PROVIDERS: Emergency Provider Emergency Medicine; PCP Internal Medicine; Visit Provider Radiology Diagnostic Radiology | DX: R06.00 Dyspnea, unspecified (principal); R09.02 Hypoxemia; K80.20 Calculus of gallbladder without cholecystitis without obstruction; K76.0 Fatty (change of) liver, not elsewhere classified | CPT/HCPCS: 71275 ==

== ENCOUNTER 2025-05-30 19:28 | Emergency (ER) | payer MEDICARE, MEDICAID, SELFPAY ==
--- NOTE | ~2025-05-30 | XR_ITS ---
CLINICAL HISTORY: SOB 2 view chest x-ray Comparison: CR - XR CHEST 1V - 05/20/25 21:28 EDT Findings: The lungs are clear. Normal size heart. No acute fracture. IMPRESSION: 1. No acute findings. This document has been electronically signed by: Faheem Corona MD on 05/30/2025 20:27:11
[2025-05-30 19:33] VITALS: BP 139/86; PULSE 111; RESP 20; TEMP 36.8; O2SAT 94; BMI 27.8
--- NOTE | 2025-05-30 19:36 | ED.GENADULT ---
HPI - General Adult General Chief complaint: Upper Respiratory Symptoms Stated complaint: Bronchitis Time Seen by Provider: 05/30/25 20:44 Source: patient Limitations: no limitations History of Present Illness ED Provider: Melody Mclean PA-C HPI narrative: 69-year-old male with a history of hypertension, diabetes, with recent treatment for bronchitis, presents with refractory symptoms. Patient has had cough and cold symptoms for a month, he was treated for bronchitis on May 21, he was placed on a steroid taper and received antibiotics. Patient states he completed the medicines, however his symptoms persist. Ongoing cough, wheeze shortness of breath at times, denies chest pain or fever. Related Data Home Medications ?Medication ?Instructions ?Recorded ?Confirmed hydrochlorothiazide 25 mg tablet 25 mg PO QAM 05/09/22 11/07/22 lisinopril 40 mg tablet 40 mg PO DAILY 05/09/22 11/07/22 metformin 500 mg tablet,extended 500 mg PO QPM 05/09/22 11/07/22 release 24 hr Previous Rx's ?Medication ?Instructions ?Recorded doxycycline monohydrate 100 mg 100 mg PO BID 7 days #14 caps 05/21/25 capsule prednisone 50 mg tablet 50 mg PO DAILY 5 days #5 tabs 05/21/25 prednisone 20 mg tablet 40 mg (2 x 20 mg) PO DAILY #8 tabs 05/30/25 Allergies Allergy/AdvReac Type Severity Reaction Status Date / Time No Known Allergies (No Known Allergy Verified 05/30/25 19:37 Allergies*) Review of Systems Review of Systems: Yes all other systems are reviewed and are negative Constitutional: Constitutional: Denies fatigue and Denies fever(s) Cardiovascular: Cardiovascular: Denies chest pain and Reports dyspnea Respiratory: Respiratory: Denies chest congestion, Reports cough, Reports dyspnea and Reports wheezing Gastrointestinal: Gastrointestinal: Denies abdominal pain, Denies nausea and Denies vomiting Endocrine: Endocrine: Denies fatigue Allergic/Immunologic: Allergic/Immunologic: Reports wheezing PMFSH Past Medical History Attestation statement: The following information was validated with the patient. Surgical History Hx of colonoscopy Social History Social History Household Members Other:: Alcohol intake: current Alcohol intake frequency: a few times a week Alcohol type: beer Patient Tobacco Use Status: Current someday Tobacco user Substance Use Type: Marijuana Advance Directives: No Advance Directives Information Provided: No Current occupational status: retired Physical Exam ED Vital Signs: Vital Signs - 24 hr 05/30/25 19:33 Temperature 98.3 F Pulse Rate 111 H Respiratory Rate 20 Blood Pressure 139/86 Pulse Oximetry 94 Oxygen Delivery Method Room Air BMI result Body Mass Index 27.8 Const Other: Alert Orientation/consciousness: patient oriented x3 Resp Other: nonlabored respirations, occasional expiratory wheeze Cardio Other: normal peripheral perfusion Skin Other: warm dry no rash Neuro General: patient oriented x3, gait normal, no focal motor deficits and CN's II-XI intact bilaterally Psych Other: cooperative Course Course Course Narrative: This is an RME: Additional HPI, ROS, PE not included below will be deferred to primary provider. RME assessment and note performed by: Elissa Ndiaye PA-C This is a 69-year-old male, with a past medical history of COPD, hypertension, who presents emergency department with concerns of ongoing shortness for breath and cough. He was seen here on May 20 and was diagnosed with bronchitis, discharged on prednisone and doxycycline which he completed however does not have any improvement of his symptoms. Lungs with expiratory wheezes noted throughout all lung kincaid Plan: Labs, EKG, XR, viral swabs, further Er eval needed Medical Decision Making Medical Decision Making MDM Narrative: 69-year-old male with a history of hypertension, diabetes, with recent treatment for bronchitis, presents with refractory symptoms. Patient has had cough and cold symptoms for a month, he was treated for bronchitis on May 21, he was placed on a steroid taper and received antibiotics. Patient states he completed the medicines, however his symptoms persist. Ongoing cough, wheeze shortness of breath at times, denies chest pain or fever. problem: Age, diabetes History: Per patient I have considered the following differential diagnoses: Bronchitis, pneumonia, viral syndrome, airway reactivity , ACS Plan: patient is still having mild symptoms of bronchitis, he has not use the inhaler, he still has 1, we will start him on another course of steroid. Chest x-ray was clear viral panel negative. ACS was considered, although the patient denies chest pain, he does have risk factors for coronary artery disease, EKG and troponin obtained. I have independently reviewed the following tests: Labs:No overall leukocytosis, not anemic, no electrolyte abnormalities, troponin < 2.7, viral panel negative tested for COVID influenza a and B Chest x-ray: Findings: The lungs are clear. Normal size heart. No acute fracture. IMPRESSION: 1. No acute findings. EKG: sinus tachycardia, rate of 104, age indeterminate ischemic changes inferior leads, QTC 449 looks very similar to recent EKG on May 20 Differential Diagnosis Differential Diagnoses: The differential diagnosis associated with the presentation includes see medical decision-making Admission/Observation Consideration of admission/observation: Escalation of care including admission/observation considered not applicable Lab Data MDM Lab Attestation statement: I reviewed the patient's lab results. 05/30/25 20:04 05/30/25 20:04 Labs: Lab Results 05/30/25 05/30/25 Range/Units 20:04 20:04 WBC 9.2 (4.8-10.8) X10*3/uL RBC 5.32 (4.60-5.80) X10*6/uL Hgb 16.7 (14.0-18.0) g/dl Hct 47.3 (42.0-52.0) % MCV 88.9 (80.0-98.0) fL MCH 31.4 (27.0-33.0) pg MCHC 35.3 (31.0-36.0) g/dl RDW 13.7 (11.0-16.0) % Plt Count 188 (160-400) X10*3/uL MPV 10.3 (9.4-12.4) fL Immature Gran % (Auto) 0.3 (0.0-0.4) % Neut % (Auto) 58.3 (45-73) % Lymph % (Auto) 29.7 (20-40) % [place] % (Auto) 6.4 (2-11) % Eos % (Auto) 4.9 H (0-4) % Baso % (Auto) 0.4 (0-2) % Lymph # (Auto) 2.7 (1.2-4.9) X10*3/uL [place] # (Auto) 0.6 (0.1-1.2) X10*3/uL Eos # (Auto) 0.5 H (0.0-0.4) X10*3/uL Baso # (Auto) 0.0 (0.0-0.2) X10*3/uL Abs Immat Gran (auto) 0.03 (0.00-0.03) X10*3/uL Absolute Neuts (auto) 5.3 (2.0-8.3) x10*3/uL Absolute Nucleated RBC 0.000 (0.0-0.012) X10*3/uL Nucleated RBC % (auto) 0.0 (0.0-0.2) /100WBC Sodium 142 (135-145) mmol/L Potassium 4.0 (3.3-5.1) mmol/L Chloride 105 (96-108) mmol/L Carbon Dioxide 25 (22-29) mmol/L Anion Gap 16 (12-20) BUN 9 (9-16) mg/dL Creatinine 0.95 (0.5-1.4) mg/dL Estim Creat Clear Calc 65.4 Estimated GFR > 60 Random Glucose 134 H (60-115) mg/dL Calcium 9.5 (8.4-10.2) mg/dL Magnesium 2.3 (1.6-2.6) mg/dL Total Bilirubin 0.6 (0.0-1.0) mg/dL Direct Bilirubin 0.1 (0.0-0.5) mg/dL AST 25 (5-37) U/L ALT 35 (0-40) U/L Alkaline Phosphatase 69 (39-117) U/L Troponin I High Sens < 2.7 (<3.5-35.0) ng/L NT-Pro-B Natriuret Pep 20.9 Cancelled (<300) pg/mL Total Protein 7.3 (6.5-8.0) g/dL Albumin 4.4 (3.5-5.0) g/dL COVID-19 (CHASE) Negative (Negative) COVID-19 Clin Com See Note Influenza Type A (RENE) Negative (Negative) Influenza Type B (RENE) Negative (Negative) Influenza A & B Note See Note Independent Interpretation I performed an independent interpretation of an: EKG Radiology Impression Discussion of test interpretation with radiology: I have reviewed the radiologist's reading. Discharge Plan Discharge Clinical Impression: Wheezing Patient Disposition: Home, Self-Care Instructions: Wheezing (ED) Additional Instructions: all of your screening labs including a cardiac enzymes were normal, the viral panel was negative, you were tested for COVID and influenza. The chest x-ray is clear you do not have pneumonia. You are being treated for your ongoing wheezing. Use your inhaler as needed at home, you can use it every 4-6 hours if you feel short of breath or are or wheezing. Take the steroid as directed. Follow up with your primary care provider as needed. Prescriptions: New prednisone 20 mg tablet 40 mg PO DAILY Qty: 8 0RF No Action doxycycline monohydrate 100 mg capsule 100 mg PO BID 7 Days Qty: 14 0RF prednisone 50 mg tablet 50 mg PO DAILY 5 Days Qty: 5 0RF hydrochlorothiazide 25 mg tablet 25 mg PO QAM lisinopril 40 mg tablet 40 mg PO DAILY metformin 500 mg tablet extended release 24 hr 500 mg PO QPM Print Language: English
--- NOTE | 2025-05-30 19:38 | ECG_ITS ---
Test Reason : SHORTNESS OF BREATH Blood Pressure : */* mmHG Vent. Rate : 104 BPM Atrial Rate : 104 BPM P-R Int : 168 ms QRS Dur : 92 ms QT Int : 342 ms P-R-T Axes : 61 135 25 degrees QTcB Int : 449 ms Sinus tachycardia Left posterior fascicular block Inferior infarct , age undetermined Abnormal ECG When compared with ECG of 20-May-2025 20:13, Inferior infarct is now Present Referred By: Elissa Ndiaye Electronically Signed By: FARIBA SANDOVAL MD
[2025-05-30 20:10] LABS: MANUAL DIFF FLAG NO
[2025-05-30 20:11] LABS: Hematocrit 47.3 % (42.0-52.0); Hemoglobin 16.7 g/dl (14.0-18.0); Imm Gran Abs Auto 0.03 X10*3/uL (0.00-0.03); Imm Gran Pct Auto 0.3 % (0.0-0.4); Lymphocytes Absolute Auto 2.7 X10*3/uL (1.2-4.9); Mean Corpuscular HGB Conc 35.3 g/dl (31.0-36.0); Mean Corpuscular Hemoglobin 31.4 pg (27.0-33.0); Mean Corpuscular Volume 88.9 fL (80.0-98.0); NRBC Abs Auto 0.000 X10*3/uL (0.0-0.012); NRBC Pct Auto 0.0 /100WBC (0.0-0.2); Platelet Count 188 X10*3/uL (160-400); Red Blood Count 5.32 X10*6/uL (4.60-5.80); White Blood Count 9.2 X10*3/uL (4.8-10.8)
[2025-05-30 20:26] LABS: COVID-19 Test Negative (Negative); IDNOW Serial# 55D5AD1C
[2025-05-30 20:28] LABS: IDNOW Serial# 58CA691E; Influenza B2 Negative (Negative)
[2025-05-30 20:30] LABS: Alanine Aminotransferase 35 U/L (0-40); Albumin Level 4.4 g/dL (3.5-5.0); Alkaline Phosphatase 69 U/L (39-117); Anion Gap 16 (12-20); Aspartate Amino Transferase 25 U/L (5-37); Blood Urea Nitrogen 9 mg/dL (9-16); Calcium 9.5 mg/dL (8.4-10.2); Carbon Dioxide 25 mmol/L (22-29); Chloride 105 mmol/L (96-108); Creatinine Clr Calc Pharmacy 65.4; Estimated Glomerular Filt Rate > 60; Magnesium 2.3 mg/dL (1.6-2.6); Potassium 4.0 mmol/L (3.3-5.1); Sodium 142 mmol/L (135-145); Total Protein 7.3 g/dL (6.5-8.0)
[2025-05-30 20:35] LABS: NT Pro B Type Natriuretic Pept 20.9 pg/mL (<300); Troponin-I High Sensitivity < 2.7 ng/L (<3.5-35.0)
[2025-05-30 21:15] VITALS: BP 132/96; PULSE 106; RESP 20; TEMP 37.1; O2SAT 93
[2025-05-30 21:17] VITALS: BP 132/96; PULSE 106; RESP 20; TEMP 37.1; O2SAT 93
== END 2025-05-30 21:18 | disposition home or self-care (01) ==
PROVIDERS: Physician Assistant Medical; Emergency Provider Emergency Medicine; PCP Internal Medicine
DX: R06.2 Wheezing (principal); R06.02 Shortness of breath; R00.0 Tachycardia, unspecified; Z11.52 Encounter for screening for COVID-19; F17.210 Nicotine dependence, cigarettes, uncomplicated; Z79.899 Other long term (current) drug therapy
CPT/HCPCS: 71046; 80048; 80076; 83735; 83880; 84484; 85025; 87502; 87635; 93005; 99283

== ENCOUNTER → 2025-05-30 19:38 | Outpatient (BNV) | payer MEDICARE, MEDICAID, SELFPAY | PROVIDERS: Emergency Provider Emergency Medicine; PCP Internal Medicine; Visit Provider Internal Medicine Cardiovascular Disease | DX: R00.0 Tachycardia, unspecified (principal); I44.5 Left posterior fascicular block | CPT/HCPCS: 93010 ==

== ENCOUNTER → 2025-05-30 19:38 | Outpatient (BNV) | payer MEDICARE, MEDICAID, SELFPAY | PROVIDERS: Emergency Provider Emergency Medicine; PCP Internal Medicine; Visit Provider Radiology Diagnostic Radiology | DX: R06.02 Shortness of breath (principal) | CPT/HCPCS: 71046 ==